=== PATIENT | male | born 1950 | race Caucasian/White ===

== ENCOUNTER 2021-09-25 07:55 | Emergency (ER) | payer MEDICARE, SELFPAY ==
--- NOTE | ~2021-09-25 | XR_ITS ---
XR abdomen/kub 1V 09/25/2021 08:21 INDICATION: Declining stool volume for 3 weeks TECHNIQUE: KUB COMPARISON: None FINDINGS: Bowel gas pattern is normal. Moderate colonic fecal loading. There is no evidence of free a ir, mass, organomegaly, ascites or obstruction. No abnormal calculi are seen. The bones appear inta ct. IMPRESSION: 1: No acute abdominal abnormality identified. Reviewed, dictated and finalized at location A.
[2021-09-25 08:01] VITALS: BP 173/89; PULSE 93; RESP 18; TEMP 36.4; O2SAT 99
--- NOTE | 2021-09-25 09:26 | ED.GENADULT ---
HPI - General Adult General Chief complaint: Unspecified Stated complaint: CONSTIPATION Time Seen by Provider: 09/25/21 08:07 History of Present Illness HPI narrative: Pt presents with not having BM for several days. Pt denies pain or other symptoms. Related Data Allergies Allergy/AdvReac Type Severity Reaction Status Date / Time No Known Allergies Allergy Verified 09/25/21 08:09 Review of Systems Review of Systems: All systems reviewed & are unremarkable except as noted in HPI and below Exam Const: General: cooperative, healthy appearing, comfortable and no acute distress Nutritional Appearance: average body habitus Orientation/consciousness: patient oriented x3 Limitations: no limitations Neck: Neck: normal visual inspection and full ROM Chest: Chest palpation & inspection: normal inspection of the chest Resp: Effort & Inspection: normal respiratory effort and able to speak in complete sentences Auscultation: clear to auscultation bilaterally Cardio: Rate: regular rate Rhythm: regular rhythm GI: Inspection: normal to inspection GI Palp: Yes abdominal tenderness (none) Percussion: Yes normal to percussion Auscultation: normal bowel sounds Back/Spine/Pelvis: Back: no CVA tenderness Skin: General skin exam: normal color and no rashes or lesions noted Neuro: General: patient oriented x3, moves all extremities and no focal motor deficits Extrem: General: normal to inspection, full ROM and no clubbing, cyanosis or edema Psych: Appearance: grossly normal Mental Status: mental status grossly normal Speech and movement: Normal speech and movement present Affect: normal affect Attitude: cooperative Course Vital Signs Vital signs: Vital Signs Temperature 97.6 F 09/25/21 08:01 Pulse Rate 93 09/25/21 08:01 Respiratory Rate 18 09/25/21 08:01 Blood Pressure 173/89 H 09/25/21 08:01 Pulse Oximetry 99 09/25/21 08:01 Oxygen Delivery Room Air 09/25/21 08:01 Temperature 97.6 F 09/25/21 08:01 Pulse Rate 87 09/25/21 09:40 Respiratory Rate 17 09/25/21 09:40 Blood Pressure 164/83 H 09/25/21 09:40 Pulse Oximetry 100 09/25/21 09:40 Oxygen Delivery Room Air 09/25/21 08:01 Medical Decision Making Vital Signs Vital Signs: Vital Signs Temperature 97.6 F 09/25/21 08:01 Pulse Rate 93 09/25/21 08:01 Respiratory Rate 18 09/25/21 08:01 Blood Pressure 173/89 H 09/25/21 08:01 Pulse Oximetry 99 09/25/21 08:01 Oxygen Delivery Room Air 09/25/21 08:01 Temperature 97.6 F 09/25/21 08:01 Pulse Rate 87 09/25/21 09:40 Respiratory Rate 17 09/25/21 09:40 Blood Pressure 164/83 H 09/25/21 09:40 Pulse Oximetry 100 09/25/21 09:40 Oxygen Delivery Room Air 09/25/21 08:01 Discharge Plan Discharge Clinical Impression: Constipation Patient Disposition: Home, Self-Care Condition: Stable Instructions: Antibiotic Form, Constipation (DC) Prescriptions: New magnesium citrate [Citroma] Solution 300 ml PO ONCE Qty: 296 0RF Rx Instructions: as a single dose Follow-up/Referrals: PHYSICIAN,BOAT JOINER [Primary Care Provider] -
[2021-09-25 09:40] VITALS: BP 164/83; PULSE 87; RESP 17; O2SAT 100
== END 2021-09-25 09:41 | disposition home or self-care (01) ==
PROVIDERS: Emergency Provider Emergency Medicine
DX: K59.00 Constipation, unspecified (principal)
CPT/HCPCS: 74018; 99283

== ENCOUNTER 2022-05-24 07:33 | Emergency (ER) | payer MEDICARE, SELFPAY ==
[2022-05-24 07:37] VITALS: BP 171/109; PULSE 107; RESP 20; TEMP 36.2; O2SAT 97
--- NOTE | 2022-05-24 07:56 | ECG_ITS ---
Measurements Intervals [place] Rate: 88 P: 67 CO: 192 QRS: -24 QRSD: 96 T: 48 QT: 370 QTc: 448 Interpretive Statements SINUS RHYTHM POSSIBLE LEFT ATRIAL ENLARGEMENT DELAYED PRECORDIAL R/S TRANSITION BASELINE ARTIFACT- I, III, AVL, V2 BORDERLINE ECG NO PREVIOUS ECG AVAILABLE FOR COMPARISON Electronically Signed On 05-24-2022 8:04:35 WARRANTY MANAGER by Brice Solis D.O.
[2022-05-24 07:58] VITALS: BP 187/91; PULSE 87; RESP 18; O2SAT 99
[2022-05-24 08:30] LABS: Anion Gap 3 mmol/L (8-16); Blood Urea Nitrogen 17 mg/dL (9-20); Calcium 8.8 mg/dL (8.4-10.2); Carbon Dioxide 30 mmol/L (22-30); Chloride 106 mmol/L (98-107); Estimated CRCL calculation 53 ml/min; Estimated Glomerular Filt Rate > 60; Glucose 102 mg/dL (65-110); Magnesium 2.2 mg/dL (1.6-2.3); Potassium 4.3 mmol/L (3.4-5.0); Sodium 139 mmol/L (137-145)
--- NOTE | 2022-05-24 08:36 | ED.GENADULT ---
HPI - General Adult General Chief complaint: Recheck/Abnormal Lab/Rx Stated complaint: High BP Time Seen by Provider: 05/24/22 07:41 History of Present Illness HPI narrative: Patient is a 71-year-old male who presents ER with elevated blood pressure. Reports he had an elevated blood pressure at his dentist office earlier this week. No chest pain or chest pressure or shortness of breath. No nausea or vomiting. Would like to make sure he is okay. Has no previous history of hypertension. But he also does not have a primary care doctor who he sees. Related Data Allergies Allergy/AdvReac Type Severity Reaction Status Date / Time No Known Allergies Allergy Verified 09/25/21 08:09 Review of Systems Review of Systems: All systems reviewed & are unremarkable except as noted in HPI and below Constitutional: Constitutional: Denies chills and Denies fever(s) Cardiovascular: Cardiovascular: Denies chest pain, Denies rapid heart rate and Denies radiating jaw, neck or arm pain Respiratory: Respiratory: Denies cough and Denies dyspnea Gastrointestinal: Gastrointestinal: Denies abdominal pain, Denies nausea and Denies vomiting Exam Narrative: GENERAL: Well-appearing, well-nourished, and in no acute distress. HEAD: Normocephalic, atraumatic. EYES: PERRL and EOMI. ENT: Mucous membranes moist. CHEST: Clear to auscultation. No respiratory distress. HEART: Regular rate and rhythm. Normal peripheral pulses. EXTREMITIES: Normal range of motion. No edema. SKIN: Warm, dry, no rash. NEURO: Alert and oriented x3. PSYCH: Normal mood and affect. Course Course Emergency Course: Improvement in blood pressure just resting. Will be started on Norvasc and given PCP follow-up. Patient also reports he was found when he takes his insurance and is planning to call to schedule an appointment. Vital Signs Vital signs: Vital Signs Temperature 97.2 F L 05/24/22 07:37 Pulse Rate 107 H 05/24/22 07:37 Respiratory Rate 20 05/24/22 07:37 Blood Pressure 171/109 H 05/24/22 07:37 Pulse Oximetry 97 05/24/22 07:37 Oxygen Delivery Room Air 05/24/22 07:37 Temperature 97.2 F L 05/24/22 07:37 Pulse Rate 87 05/24/22 07:58 Respiratory Rate 18 05/24/22 07:58 Blood Pressure 169/88 H 05/24/22 08:42 Pulse Oximetry 99 05/24/22 07:58 Oxygen Delivery Room Air 05/24/22 07:37 Medical Decision Making Vital Signs Vital Signs: Vital Signs Temperature 97.2 F L 05/24/22 07:37 Pulse Rate 107 H 05/24/22 07:37 Respiratory Rate 20 05/24/22 07:37 Blood Pressure 171/109 H 05/24/22 07:37 Pulse Oximetry 97 05/24/22 07:37 Oxygen Delivery Room Air 05/24/22 07:37 Temperature 97.2 F L 05/24/22 07:37 Pulse Rate 87 05/24/22 07:58 Respiratory Rate 18 05/24/22 07:58 Blood Pressure 169/88 H 05/24/22 08:42 Pulse Oximetry 99 05/24/22 07:58 Oxygen Delivery Room Air 05/24/22 07:37 Lab Data 05/24/22 08:14 Labs: Lab Results 05/24/22 Range/Units 08:14 Sodium 139 (137-145) mmol/L Potassium 4.3 (3.4-5.0) mmol/L Chloride 106 (98-107) mmol/L Carbon Dioxide 30 (22-30) mmol/L Anion Gap 3 L (8-16) mmol/L BUN 17 (9-20) mg/dL Creatinine 1.00 (0.7-1.3) mg/dL Estim Creat Clear Calc 53 ml/min Estimated GFR > 60 (59 - ) Glucose 102 (65-110) mg/dL Calcium 8.8 (8.4-10.2) mg/dL Magnesium 2.2 (1.6-2.3) mg/dL Discharge Plan Discharge Clinical Impression: Hypertension Patient Disposition: Home, Self-Care Condition: Stable Instructions: Hypertension (ED) Additional Instructions: Return the ER if you have chest pain or shortness of breath, you cannot keep down food or water, you lose consciousness, you have additional concerns. Establish care with a primary care physician so that he can have long-term management of your hypertension. Prescriptions: New amlodipine 5 mg tablet 5 mg PO DAILY Qty: 14 0RF No Action magnesium ci
[2022-05-24 08:42] VITALS: BP 169/88
== END 2022-05-24 08:57 | disposition home or self-care (01) ==
PROVIDERS: Emergency Provider Emergency Medicine
DX: I10 Essential (primary) hypertension (principal); R94.31 Abnormal electrocardiogram [ECG] [EKG]
CPT/HCPCS: 36415; 80048; 83735; 93005; 99283

== ENCOUNTER 2022-06-29 09:09 | Outpatient (CLI) | payer MEDICARE, SELFPAY ==
[2022-06-29 20:52] LABS: Alanine Aminotransferase 25 U/L (6-50); Albumin Level 4.4 g/dL (3.5-5.1); Alkaline Phosphatase 122 U/L (38-126); Anion Gap 6 mmol/L (8-16); Aspartate Amino Transferase 36 U/L (17-59); Bilirubin,Total 0.6 mg/dL (0.2-1.3); Blood Urea Nitrogen 13 mg/dL (9-20); Carbon Dioxide 30 mmol/L (22-30); Chloride 104 mmol/L (98-107); Estimated Glomerular Filt Rate > 60; Glucose 77 mg/dL (65-110); Potassium 4.5 mmol/L (3.4-5.0); Sodium 140 mmol/L (137-145)
[2022-06-29 21:14] LABS: Prostate Specific Antigen 5.6 ng/mL (< OR = 4.0)
[2022-06-30 13:37] LABS: Basophils Absolute Auto 0.1 K/mm3 (0.0-0.1); Basophils Percent Auto 1.3 % (0.2-1.2); Eosinophils Absolute Auto 0.1 K/mm3 (0-0.3); Eosinophils Percent Auto 0.8 % (0-4.4); Hematocrit 51.7 % (42.0-52.0); Hemoglobin 16.7 g/dL (14.0-18.0); Immature Granulocyte Absolute 0.03 K/mm3 (0.00-0.031); Immature Granulocyte Percent A 0.4 % (0-0.5); Lymphocytes Absolute Auto 2.19 K/mm3 (0.9-3.2); Lymphocytes Percent Auto 26.4 % (18.3-44.2); Mean Corpuscular HGB Conc 32.3 g/dl (32-36); Mean Corpuscular Hemoglobin 31.3 pg (26-34); Mean Corpuscular Volume 96.8 fl (80-100); Mean Platelet Volume 11.7 fl (7.4-10.4); Monocytes Absolute Auto 0.6 K/mm3 (0.1-0.6); Monocytes Percent Auto 6.6 % (2.6-8.5); Neutrophils Absolute Auto 5.4 K/mm3 (1.3-6.7); Neutrophils Percent Auto 64.5 % (45.5-73.1); Platelet Count Result 232 k/mm3 (150-375); Red Blood Count 5.34 M/mm3 (4.6-6.20); Red Cell Distribution Width 13.3 % (11.5-14.5); White Blood Count 8.3 K/mm3 (4.5-10.0)
[2022-06-30 13:40] LABS: Cholesterol 189 mg/dL (0-200); HDL Direct 29 mg/dL; Triglycerides 142 mg/dL (<150)
[2022-06-30 13:49] LABS: LDL Cholesterol Direct 134 mg/dL
== END 2022-06-29 09:10 | disposition home or self-care (01) ==
LOC: ANHGOSHLAB 09:10
PROVIDERS: PCP Internal Medicine; Visit Provider Nurse Practitioner
DX: I10 Essential (primary) hypertension (principal); Z12.5 Encounter for screening for malignant neoplasm of prostate; Z13.29 Encounter for screening for other suspected endocrine disorder; Z13.220 Encounter for screening for lipoid disorders
CPT/HCPCS: 36415; 80053; 80061; 84153; 85025; G0103

== ENCOUNTER → 2022-07-02 12:36 | Outpatient (CLI) | payer MEDICARE, SELFPAY ==
--- NOTE | ~2022-07-02 | US_ITS ---
EXAMINATION: US carotid duplex BI DATE: 07/02/2022 13:03 INDICATION: Right carotid bruit TECHNIQUE: Grayscale, color Doppler, and pulsed Doppler images of the cervical carotid arteries were obtained. The degree of vessel stenosis is placed in one of the following categories: normal, <50%, 5 0-69%, >=70% but less than near-occlusion, near-occlusion, or total occlusion. Note that percent sten osis relative to normal distal artery lumen diameter is indirectly measured from velocity measurement s as described by Leighton, et al. Radiology 2003; 229:340-346. COMPARISON: None. FINDINGS: RIGHT: The right common carotid artery (CCA) peak systolic velocity (PSV) is 98.4 cm/s. The right internal c arotid artery (ICA) PSV is 93.0 cm/s. The right ICA end-diastolic velocity (EDV) is 18.1 cm/s. [facility] ICA/CCA PSV ratio is 0.9. Grayscale and color Doppler images yield an estimate of 0% diameter red uction from plaque in the ICA. The external carotid artery (ECA) PSV is 120.3 cm/s. There is antegrad e flow in the right vertebral artery. LEFT: The left CCA PSV is 116.1 cm/s. The left ICA PSV is 100.3 cm/s. The left ICA EDV is 12.6 cm/s. [facility] ICA/CCA PSV ratio is 0.9. Grayscale and color Doppler images yield an estimate of 0% diameter redu ction from plaque in the ICA. The ECA PSV is 219.6 cm/s. There is antegrade flow in the left vertebra l artery. IMPRESSION: 1. No stenosis in the right internal carotid artery. 2. No stenosis in the left internal carotid artery. Reviewed, dictated and finalized at Location A. Reviewed, dictated and finalized at location L. TOLOGIC TECHNICIAN
== END ==
PROVIDERS: PCP Internal Medicine; Visit Provider Nurse Practitioner
DX: R09.89 Other specified symptoms and signs involving the circulatory and respiratory systems (principal)
CPT/HCPCS: 93880

== ENCOUNTER 2022-08-07 09:08 | Outpatient (CLI) | payer MEDICARE, SELFPAY ==
[2022-08-07 18:19] LABS: Basophils Absolute Auto 0.1 K/mm3 (0.0-0.1); Basophils Percent Auto 1.2 % (0.2-1.2); Eosinophils Absolute Auto 0.1 K/mm3 (0-0.3); Eosinophils Percent Auto 1.4 % (0-4.4); Hematocrit 52.9 % (42.0-52.0); Hemoglobin 17.1 g/dL (14.0-18.0); Immature Granulocyte Absolute 0.02 K/mm3 (0.00-0.031); Immature Granulocyte Percent A 0.2 % (0-0.5); Lymphocytes Absolute Auto 2.74 K/mm3 (0.9-3.2); Lymphocytes Percent Auto 31.6 % (18.3-44.2); Mean Corpuscular HGB Conc 32.3 g/dl (32-36); Mean Corpuscular Hemoglobin 31.2 pg (26-34); Mean Corpuscular Volume 96.5 fl (80-100); Monocytes Absolute Auto 0.7 K/mm3 (0.1-0.6); Monocytes Percent Auto 8.1 % (2.6-8.5); Neutrophils Percent Auto 57.5 % (45.5-73.1); Platelet Count Result 216 k/mm3 (150-375); Red Blood Count 5.48 M/mm3 (4.6-6.20); Red Cell Distribution Width 12.9 % (11.5-14.5); White Blood Count 8.7 K/mm3 (4.5-10.0)
[2022-08-07 18:52] LABS: Cholesterol 151 mg/dL (0-200); HDL Direct 31 mg/dL; Triglycerides 127 mg/dL (<150)
[2022-08-07 19:03] LABS: LDL Cholesterol Direct 95 mg/dL
[2022-08-07 19:22] LABS: Prostate Specific Antigen 5.6 ng/mL (< OR = 4.0)
== END 2022-08-07 09:09 | disposition home or self-care (01) ==
LOC: ANHGOSHLAB 09:09
PROVIDERS: PCP Internal Medicine; Visit Provider Nurse Practitioner
DX: I10 Essential (primary) hypertension (principal); R97.20 Elevated prostate specific antigen [PSA]; Z12.5 Encounter for screening for malignant neoplasm of prostate
CPT/HCPCS: 36415; 80061; 84153; 85025

== ENCOUNTER 2022-09-07 08:00 | Outpatient (NON) | payer MEDICARE, SELFPAY | END 2022-09-07 08:01 | disposition home or self-care (01) | LOC: ANHLAB 09-08 07:31 | PROVIDERS: PCP Internal Medicine; Visit Provider Internal Medicine Gastroenterology | DX: Z12.11 Encounter for screening for malignant neoplasm of colon (principal); D12.3 Benign neoplasm of transverse colon | CPT/HCPCS: 88305 ==

== ENCOUNTER 2022-09-07 10:52 | Day surgery (SDC) | payer MEDICARE, SELFPAY ==
[2022-07-06 15:38] VITALS: BMI 21.2
[2022-08-19 14:08] VITALS: BMI 21.3
--- NOTE | 2022-09-07 09:09 | WPDANESEPPF ---
Anes - Initial Pre Proc Eval Procedure: Operation Date: 09/07/22 13:00 Proposed Procedures p Screening Colonoscopy - Roberto Concepcion MD Date/Time: 09/07/22 09:09 Surgeon: Roberto Concepcion MD Pre Op Diagnosis: Neoplasm Screening Patient Data Age: 71 Gender: M Height: 1.75 m Weight: 65.5 kg Allergies Allergy/AdvReac Type Severity Reaction Status Date / Time No Known Allergies Allergy Verified 09/07/22 11:52 Home Medications Medication Instructions Recorded Confirmed Type atorvastatin 10 mg tablet 10 mg PO QHS #90 tabs 07/01/22 09/07/22 Rx sodium,potassium,mag sulfates 17.5 See Rx Instructions PO .COMPLEX 07/03/22 08/04/22 Rx gram-3.13 gram-1.6 gram oral soln #354 mL (Suprep Bowel Prep Kit) Patient hx anesthesia problems: none Family hx anesthesia problems: none Results Review: All pre-operative results and documents have been reviewed as part of the pre-operative evaluation. [facility] Past Medical History Medical History (Updated 09/07/22 @ 09:10 by Iglesia Flanagan DO) Hyperlipidemia Social History Social History (Updated 09/07/22 @ 12:22 by Iglesia Flanagan DO) Smoking packs per day: 0.5 Smoking cigarettes per day: 10.0 Years smoked: 55 Smoking pack-years: 27.50 Smoking status: Current every day smoker Tobacco type: cigarettes Alcohol intake: current Substance use type: does not use Lack of Transportation: No Lack of Food: Never True Current Housing: I Have Housing Concerned About Future Housing: No Difficulty Paying Gas/Electric Bills: No Difficulty Paying for Meds: No Currently Unemployed: No Education: Master's Degree or Higher Difficulty w/ Childcare or Family Care: No Living arrangements: alone Spiritual care concerns: No Anes - Eval Final PreProcedure Day of Procedure 09/07/22 09:09 Patient weight: normal Heart: regular rate and rhythm Lungs: clear to auscultation and normal air movement Airway: Mallampati scale class II Neurological: alert and oriented Last oral intake: >/= 8 hours ASA classification: III Emergent: no Anesthetic plan: proceed Anesthesia type and monitoring: general GIVS and standard monitoring Results Review: All pre-operative results and documents have been reviewed as part of the pre-operative evaluation. Informed Consent: The patient's anesthetic plan and its attendant risks and benefits were discussed with the patient/family/POA. Questions were solicited and answers provided to the satisfaction of the patient/family/POA.
[2022-09-07 11:57] VITALS: BMI 20.7
[2022-09-07 11:59] VITALS: BP 138/101; PULSE 106; RESP 18; TEMP 36.3; O2SAT 99
[2022-09-07] MEDS: LACTATED RINGERS 1,000 ML 150 ML IV CONT (12:20)
--- NOTE | 2022-09-07 12:24 | PM.HPGS ---
History of Present Illness History of Present Illness Consent: Risks, benefits, and alternatives have been discussed and questions answered. Patient agrees to proceed with procedure. Chief complaint: Neoplasm Screening Narrative: Leo Ramirez is a 71 year old male Presents for screening colonoscopy. Patient's current weight appetite and bowel movements look normal. Patient denies abdominal pain. He has had no bleeding. Family history noncontributory. Patient presents today for screening colonoscopy. Review of Systems Review of Systems: Review of systems noncontributory. [facility] Past Medical History Medical History (Updated 09/07/22 @ 12:26 by Roberto Concepcion MD) Hyperlipidemia Social History Social History (Updated 09/07/22 @ 12:22 by Iglesia Flanagan DO) Smoking packs per day: 0.5 Smoking cigarettes per day: 10.0 Years smoked: 55 Smoking pack-years: 27.50 Smoking status: Current every day smoker Tobacco type: cigarettes Alcohol intake: current Substance use type: does not use Lack of Transportation: No Lack of Food: Never True Current Housing: I Have Housing Concerned About Future Housing: No Difficulty Paying Gas/Electric Bills: No Difficulty Paying for Meds: No Currently Unemployed: No Education: Master's Degree or Higher Difficulty w/ Childcare or Family Care: No Living arrangements: alone Spiritual care concerns: No Meds Home Medications and Allergies Home Medications Medication Instructions Recorded Confirmed Type atorvastatin 10 mg tablet 10 mg PO QHS #90 tabs 07/01/22 09/07/22 Rx sodium,potassium,mag sulfates 17.5 See Rx Instructions PO .COMPLEX 07/03/22 08/04/22 Rx gram-3.13 gram-1.6 gram oral soln #354 mL (Suprep Bowel Prep Kit) Allergies Allergy/AdvReac Type Severity Reaction Status Date / Time No Known Allergies Allergy Verified 09/07/22 11:52 Vital Signs Vital Signs - 24 hr 09/07/22 11:59 Temperature 97.3 F L Pulse Rate 106 H Respiratory Rate 18 Blood Pressure 138/101 H Pulse Oximetry 99 Oxygen Delivery Room Air Exam Narrative: Physical exam reveals patient to be alert. Vital signs stable. HEENT exam is unremarkable. Patient is anicteric. Lungs are clear to auscultation and percussion. Heart is without murmur or extra sounds. Abdomen bowel sounds are present soft nontender with no organomegaly. Digital external rectal exam normal. Assessment and Plan Assessment and plan (1) Encounter for screening colonoscopy: Code(s): Z12.11 - Encounter for screening for malignant neoplasm of colon Status: Acute Assessment and Plan: Patient presents today for screening colonoscopy. He appears to be at average risk for colon polyps. Further recommendations may be given after endoscopy.
[2022-09-07 12:57] VITALS: BP 108/62; PULSE 74; RESP 16; O2SAT 97
--- NOTE | 2022-09-07 13:05 | WPDANESPN ---
Anes - Prog Note Post-Op Date/Time: 09/07/22 13:05 Vital Signs: Last Vital Signs Temp 36.3 C L 09/07/22 11:59 Pulse 106 H 09/07/22 11:59 Resp 18 09/07/22 11:59 BP 138/101 H 09/07/22 11:59 Pulse Ox 99 09/07/22 11:59 O2 Del Method Room Air 09/07/22 11:59 Pain Score (VAS): 0 I/O: Intake & Output 09/06/22 09/07/22 09/07/22 23:59 07:59 15:59 Intake Total 300 Balance 300 Patient Feedback: Patient satisfied with anesthetic care.
[2022-09-07 13:07] VITALS: BP 113/76; PULSE 86; RESP 16; O2SAT 98
[2022-09-07 13:17] VITALS: BP 105/84; PULSE 84; RESP 20; O2SAT 100
== END 2022-09-07 13:43 | disposition home or self-care (01) ==
PROVIDERS: PCP Internal Medicine; Visit Provider Internal Medicine Gastroenterology
PROC: 0DJD8ZZ Inspection of Lower Intestinal Tract, Via Natural or Artificial Opening Endoscopic (ICD-10-PCS; CPT 45378; principal; 2022-09-07 13:00)
DX: Z12.11 Encounter for screening for malignant neoplasm of colon (principal)
CPT/HCPCS: 45385

== ENCOUNTER 2022-10-01 14:30 | Outpatient (CLI) | payer MEDICARE, SELFPAY ==
--- NOTE | 2022-10-01 14:57 | ECHO_ITS ---
Patient Info Name: Leo Ramirez Age: 71 years : 1950 Gender: Male Ht: 69 in Wt: 144 lbs BSA: 1.78 m2 HR: 78 bpm BP: 147 / 77 mmHg Technical Quality: Good Exam Date: 10/01/2022 3:20 PM Exam Location: [facility] Patient Status: Outpatient Admit Date: 10/01/2022 Staff Ordering Physician: Shanthi Newton NP Front Desk Person: Karli Long RDCS Attending Provider: Shanthi Newton NP Referring Physician: Aman SPENCE; Exam Type: CA echo doppler color flow Study Info Indications R01.1 - Cardiac murmur, unspecified Complete two-dimensional, color flow and Doppler transthoracic echocardiogram is performed. Summary 1. Complete two-dimensional, color flow and Doppler transthoracic echocardiogram is performed. 2. Left ventricular chamber dimension is normal. 3. Left ventricular systolic function is normal, estimated at 60-65%. 4. The left ventricular diastolic function is grade I diastolic dysfunction. 5. E/e' 7 is not elevated. 6. There is mild aortic valve regurgitation. 7. There is trace tricuspid valve regurgitation. 8. No pulmonary hypertension, estimated pulmonary arterial systolic pressure is 30 mmHg. Left Ventricle E/e' 7 is not elevated. Left ventricular chamber dimension is normal. Left ventricular systolic function is normal, estimated at 60-65%. The left ventricular diastolic function is grade I diastolic dysfunction. Right Ventricle Right ventricular chamber dimension is normal. Right ventricular systolic function is normal. Left Atria Left atrial chamber dimension is normal. Right Atria Right atrial chamber dimension is normal. Aortic Valve The aortic valve is trileaflet. There is no aortic valve stenosis. There is mild aortic valve regurgitation. Pulmonic Valve There is no pulmonic regurgitation. Mitral Valve There is no mitral valve stenosis. There is no mitral valve regurgitation. Tricuspid Valve There is trace tricuspid valve regurgitation. No pulmonary hypertension, estimated pulmonary arterial systolic pressure is 30 mmHg. Pericardium/Pleural There is no pericardial effusion. Inferior Vena Cava Normal inferior vena cava with >50% collapse upon inspiration consistent with normal right atrial pressure, 5 mmHg. Aorta The aortic root size at the sinus of Valsalva is normal. Left Ventricular Outflow Tract Name Value Normal LVOT 2D LVOT Diameter 2.0 cm LVOT Doppler LVOT Peak Gradient 4 mmHg LVOT Mean Gradient 2 mmHg LVOT VTI 17 cm LVOT VTI/AV VTI Ratio 0.9 LVOT Stroke Volume 55 ml LVOT CO 11.1 l/min LVOT CI 6.2 l/min/m2 Pulmonic Valve Name Value Normal RVOT Doppler RVOT Peak Gradient 1 mmHg PV Doppler
== END 2022-10-01 14:31 | disposition home or self-care (01) ==
PROVIDERS: PCP Internal Medicine; Visit Provider Nurse Practitioner
DX: R01.1 Cardiac murmur, unspecified (principal)
CPT/HCPCS: 93306

== ENCOUNTER → 2022-10-16 10:34 | Outpatient (CLI) | payer MEDICARE, SELFPAY ==
--- NOTE | ~2022-10-16 | CT_ITS ---
EXAMINATION: CT lung screening DATE: 10/16/2022 10:51 INDICATION: History of tobacco dependence TECHNIQUE: Computed tomography (CT) of the chest was performed without intravenous contrast. The dose -length product was 98.57 mGy-cm. Automated exposure control and iterative reconstruction technique w ere employed. COMPARISON: None FINDINGS: No significant pleural or pericardial effusion. There is atherosclerosis of the aorta. Hear t size normal. Upper abdomen is unremarkable. There is emphysema. No endobronchial lesions. There is a 3 mm right lower lobe nodule, image 53. No endobronchial lesions. No focal airspace consolidation. No pneumothorax. Mild thoracic spondylosis. IMPRESSION: 1. . Lung-RADS category 2: Benign appearance or behavior. Continue annual screening with noncontrast low-dose chest CT in 12 months. Reviewed, dictated and finalized at location [] IMPRESSION: 1. . Lung-RADS category 2: Benign appearance or behavior. Continue annual scree tarun with noncontrast low-dose chest CT in 12 months.
== END ==
PROVIDERS: PCP Nurse Practitioner; Visit Provider Nurse Practitioner
DX: Z12.2 Encounter for screening for malignant neoplasm of respiratory organs (principal); F17.210 Nicotine dependence, cigarettes, uncomplicated
CPT/HCPCS: 71271

== ENCOUNTER 2022-11-10 08:48 | Outpatient (CLI) | payer MEDICARE, SELFPAY ==
--- NOTE | ~2022-11-10 | US_ITS ---
EXAMINATION: US art doppler w press UE BI DATE: 11/10/2022 09:33 INDICATION: Peripheral vascular disease, unspecified. TECHNIQUE: Segmental pressures and plethysmographic and Doppler waveforms of the upper extremity geovanny deirdre were obtained. COMPARISON: None. FINDINGS: Right and left brachial artery pressures of 156 mm Hg and 147 mm Hg, respectively, are concordant (no rmal difference <= 30 mmHg). The right finger:brachial systolic pressure ratio is 0.52 (normal > 0.8) . Arterial Doppler waveforms demonstrate normal upstroke (normal upstroke < 0.2 s). The left finger:brachial systolic pressure ratio is 1.03. Segmental pressure gradients 0.81. Arterial Doppler waveforms demonstrate normal upstroke. IMPRESSION: 1. Decreased right finger:brachial systolic pressure ratio, consistent with right-sided arterial occl usive disease. Reviewed, dictated and finalized at location A. IMPRESSION: 1. Decreased right finger:brachial systolic pressure ratio, consistent with rig ht-sided arterial occlusive disease.
== END 2022-11-10 08:49 | disposition home or self-care (01) ==
PROVIDERS: PCP Nurse Practitioner; Visit Provider Nurse Practitioner
DX: I73.9 Peripheral vascular disease, unspecified (principal)
CPT/HCPCS: 93923

== ENCOUNTER 2024-02-11 08:50 | Outpatient (CLI) | payer MEDICARE, SELFPAY ==
[2024-02-11 18:01] LABS: Basophils Absolute Auto 0.1 K/mm3 (0.0-0.1); Basophils Percent Auto 1.8 % (0.2-1.2); Eosinophils Absolute Auto 0.2 K/mm3 (0-0.3); Eosinophils Percent Auto 2.2 % (0-4.4); Hematocrit 50.2 % (42.0-52.0); Hemoglobin 16.3 g/dL (14.0-18.0); Immature Granulocyte Absolute 0.02 K/mm3 (0.00-0.031); Immature Granulocyte Percent A 0.3 % (0-0.5); Lymphocytes Absolute Auto 2.07 K/mm3 (0.9-3.2); Lymphocytes Percent Auto 30.8 % (18.3-44.2); Mean Corpuscular HGB Conc 32.5 g/dl (32-36); Mean Corpuscular Hemoglobin 31.6 pg (26-34); Mean Corpuscular Volume 97.3 fl (80-100); Mean Platelet Volume 11.7 fl (7.4-10.4); Monocytes Absolute Auto 0.5 K/mm3 (0.1-0.6); Monocytes Percent Auto 6.8 % (2.6-8.5); Neutrophils Absolute Auto 3.9 K/mm3 (1.3-6.7); Neutrophils Percent Auto 58.1 % (45.5-73.1); Platelet Count Result 211 k/mm3 (150-375); Red Blood Count 5.16 M/mm3 (4.6-6.20); Red Cell Distribution Width 12.9 % (11.5-14.5); White Blood Count 6.7 K/mm3 (4.5-10.0)
[2024-02-11 18:17] LABS: Alanine Aminotransferase 27 U/L (6-50); Albumin Level 4.6 g/dL (3.5-5.1); Alkaline Phosphatase 98 U/L (38-126); Anion Gap 7 mmol/L (4-12); Aspartate Amino Transferase 41 U/L (17-59); Bilirubin,Total 0.6 mg/dL (0.2-1.3); Blood Urea Nitrogen 15 mg/dL (9-20); Calcium 9.5 mg/dL (8.4-10.2); Carbon Dioxide 31 mmol/L (22-30); Chloride 102 mmol/L (98-107); Cholesterol 171 mg/dL (0-200); Estimated Glomerular Filt Rate > 60; Glucose 96 mg/dL (65-110); HDL Direct 42 mg/dL; Potassium 4.8 mmol/L (3.4-5.0); Sodium 140 mmol/L (137-145); Triglycerides 73 mg/dL (<150)
[2024-02-11 18:56] LABS: LDL Cholesterol Direct 104 mg/dL
[2024-02-11 19:15] LABS: Prostate Specific Antigen 6.5 ng/mL (< OR = 4.0)
== END 2024-02-11 08:51 | disposition home or self-care (01) ==
LOC: ANHGOSHLAB 08:51
PROVIDERS: PCP Nurse Practitioner; Visit Provider Nurse Practitioner
DX: E78.5 Hyperlipidemia, unspecified (principal); Z12.5 Encounter for screening for malignant neoplasm of prostate; Z13.29 Encounter for screening for other suspected endocrine disorder
CPT/HCPCS: 36415; 80053; 80061; 84153; 85025; G0103

== ENCOUNTER 2024-12-24 06:54 | Emergency (ER) | payer MEDICARE, SELFPAY ==
[2024-12-24] VITALS (7 sets, daily range): BP systolic 132–174; BP diastolic 65–79; PULSE 61–90; RESP 13–18; TEMP 36.4–36.5; O2SAT 97–100
--- NOTE | ~2024-12-24 | US_ITS ---
EXAMINATION: US arterial duplex LE RT DATE: 12/24/2024 08:40 INDICATION: Concern for right femoral artery pseudoaneurysm post recent angioplasty TECHNIQUE: Multiple grayscale and Doppler ultrasound images of the right groin were obtained. COMPARISON: None FINDINGS: Right common femoral, superficial femoral and profunda femoral arteries are normal with normal triphasic waveforms on color Doppler. The right hypogastric artery and vein can be seen arising and extending cephalad from the right common femoral artery and vein respectively. 4.5 x 4 x 1 cm fusiform hypoechoic likely hematoma superficial to the right common femoral artery and vein without evident internal vascular flow on color Doppler likely representing a small hematoma. No pseudoaneurysm. IMPRESSION: 1. Likely small hematoma at the right groin with no pseudoaneurysm. Reviewed, dictated and finalized at location A.
--- OUTSIDE RECORDS SUMMARY | 2024-12-24 06:57 | XMS_ITS | Encounter Summary ---
Author Organization [employer] Address 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
--- OUTSIDE RECORDS SUMMARY | 2024-12-24 06:57 | XMS_ITS | Clinical Summary ---
Author Organization [email or web address] [facility] Address [address] [place] [address] Care Team Providers Care Frame Trimmer Name Role Phone Rojelio Correia MD Primary Care Provider [phone] Source Comments [facility],non-owned Affiliates and Associated Physician Practices is amultiple site organization consisting of ambulatory clinics and hospital sitesin [place], [place], [place] and [place]. This disclosure is being madepursuant to the Care Everywhere program and may not contain all information available regarding this patient. Last updated 18.[employer] Allergies No known active allergies Medications * Be aware that medications may not be up to date on this document. Alwaysverify current medications with the patient. No known medications Social History Tobacco Use Types Packs/Day Years Used Date Smoking Tobacco: Every Day Smokeless Tobacco: Never Sex and Gender Information Value Date Recorded Sex Assigned at Not on file Legal Sex Male 12:53 PM CDT Gender Identity Not on file Sexual Orientation Not on file Last Filed Vital Signs Vital Sign Reading Time Taken Comments Blood Pressure 142/90 07/23/2017 2:12 PM CDT Pulse 88 07/23/2017 2:12 PM CDT Temperature 36.5 C (97.7 F) 07/23/2017 2:12 PM CDT Respiratory Rate 18 07/23/2017 2:12 PM CDT Oxygen Saturation 95% 07/23/2017 2:12 PM CDT Inhaled Oxygen Concentration - - Weight 70.3 kg (155 lb) 07/23/2017 2:12 PM CDT Height 175.3 cm (5' 9) 07/23/2017 2:12 PM CDT Body Mass Index 22.89 07/23/2017 2:12 PM CDT Plan of Treatment Health Maintenance Due Date Last Done Comments COLOGUARD (AGES 45-75) - COL ON CA SCREENING 1950 COLON MONITORING 1950 COLONOSCOPY - COLON CA SCREENING 1950 CT COLONOGRAPHY - COLON CA SCREENING 1950 Colorectal Cancer Screening 1950 FIT - COLON CA SCREENING 1950 FLEX SIG - COLON CA SCREENING 1950 LIPID TESTING 1950 HEPATITIS C SCREENING 12/14/1967 DTAP/TDAP/TD VACCINES (1 - Tdap) 1968 PNEUMOCOCCAL VACCINE 50+ (1 of 2 - PCV) 1968 ZOSTER VACCINE (1 of 2) 12/19/1999 COVID-19 VACCINE (1 - 2023-2 5 season) 2023 DEPRESSION SCREENING 04/26/2024 MEDICARE AWV CALENDAR YEAR 2024 Respiratory Syncytial Virus (RSV) Vaccine Pt: or over 60 yrs (1 - 1-dose 75+ series) 2024 INFLUENZA VACCINE (#1) 2024 HEPATITIS B VACCINE Aged Out No longe r eligible based on patient's age to complete this topic HIB VACCINE Aged Out No longer eligi ble based on patient's age to complete this topic HPV VACCINE Aged Out No longer eligi ble based on patient's age to complete this topic MENINGOCOCCAL (Group B) VACC INE SHARED DECISION-MAKING Aged Out No longer eligibl e based on patient's age to complete this topic MENINGOCOCCAL GROUPS A/C/Y/W VACCINE Aged Out No longer eligible b ased on patient's age to complete this topic Insurance [facility] MANAGED MEDICARE ADV [facility] MANAGED MEDICARE ADV Care Teams Frame Trimmer Relationship Specialty Start Date End Date Rojelio Correia MD PCP - General Internal Medicine 07/23/17
--- OUTSIDE RECORDS SUMMARY | 2024-12-24 06:57 | XMS_ITS | Clinical Summary ---
Author Organization [facility] Address [address] [place] [address] Care Team Providers Care Sas Bi Developer Name Role Phone Pritesh Quispe DO Primary Care Provider [phone] Allergies No known active allergies Medications atorvastatin (LIPITOR) 10 mg tablet Take 1 tablet (10 mg total) by mouth nightly at bedtime 09/26/2022 Active aspirin 81 mg chewable tablet Take 1 tablet (81 mg total) by mouth daily Active lisinopriL (PRINIVIL,ZESTR IL) 5 mg tablet Take 1 tablet (5 mg total) by mouth daily Active clopidogreL (PLAVIX) 75 mg tablet Take 1 tablet (75 mg total) by mouth daily 30 tablet 11 04/13/2024 Active Active Problems Problem Noted Date Diagnosed Date Atherosclerotic PVD with intermittent claudicati on 12/11/2024 Stenosis of peripheral vascular stent 11/15/2024 Primary hypertension 05/15/2024 Assessment & Plan (11/29/2024 2:05 PM CDT): Stable continue lisinopril Assessment & Plan (05/15/2024 3:29 PM CONTROL ANALYST): Stable continue lisinopril Atherosclerotic peripheral v ascular disease with intermittent claudication 03/20/2024 Embolism and thrombosis of other arteries 2023 PVD (peripheral vascular disease) 12/02/2022 Assessment & Plan (11/29/2024 2:05 PM CDT): Prior left lower extremity revascularization with iliac and SFA stents, unfortunately continues to smoke, has elevated velocities with a drop in KYLAH consistent with InStent stenosis of the left SFA. Findings discussed with the patient, we discussed the importance of tobacco cessation. Risks benefits alternatives to lower extremity angiogram possible intervention discussed. He wished proceed. We will restart ASA and Plavix following his prostate biopsy. Assessment & Plan (11/16/2024 9:14 AM CDT): Patient is showing in stent restenosis the left SFA with an elevated velocity 551 cm/sec. Patient will need to be scheduled for an angiogram with potential intervention. Discussed procedure with the patient along with its potential risks. Answered all questions to his satisfaction. He is agreeable wishes to proceed. Assessment & Plan (05/15/2024 3:29 PM CONTROL ANALYST): Status post stenting of what appeared to be a left iliac artery aneurysms with stenosis as well as left SFA stent. His life-limiting claudication has completely resolved. Continue ASA Plavix and statin therapy. Aortoiliac duplex and noninvasive testing ordered for baseline. Assessment & Plan (11/11/2023 12:15 PM CDT): Development now to life-limiting claudication of left lower extremity, risks benefits alternatives lower extremity angiogram possible intervention discussed, risks including bleeding, infection, perforation, contrast induced nephropathy, dissection, thrombosis, distal embolization and need further surgery he wished proceed. I strongly encouraged him to quit smoking. Continue ASA and statin therapy. Assessment & Plan (08/20/2023 2:31 PM CDT): Stable claudication, continue risk factor modification with ASA statin therapy. Follow up in 6 months with repeat noninvasives. Assessment & Plan (12/02/2022 8:05 AM CDT): Clinically no signs of upper extremity occlusive disease with palpable pulses and no symptoms. No further workup needed. Left lower extremity claudication. Recommend risk factor modification with ASA statin therapy. Strongly recommend smoking cessation. Bilateral lower extremity arterial Doppler ordered. Tobacco abuse 12/02/2022 Assessment & Plan (12/02/2022 9:27 AM CDT): Strongly recommended smoking cessation. Mixed hyperlipidemia 12/02/2022 Assessment & Plan (11/29/2024 2:05 PM CDT): Stable continue Lipitor Assessment & Plan (05/15/2024 3:29 PM CONTROL ANALYST): Stable continue Lipitor Assessment & Plan (11/11/2023 12:15 PM CDT): Stable continue statin therapy. Assessment & Plan (08/20/2023 2:31 PM CDT): Stable continue Lipitor 10 mg. Assessment & Plan (12/02/2022 8:05 AM CDT): Stable continue Lipitor 10 mg. Encounters Date Type Department Care Team Description 12/22/2024 11:00 AM CDT - 12/22/2024 12:00 PM CDT Surgery [facility] Cardiac Process Safety Engineer [address] [place] [id number] Jacek King MD ANGIOGRAPHY - BILATERAL EXTREMITY S&I [id number] 12/22/2024 9:04 AM CDT - 12/22/2024 6:30 PM CDT Hospital Encounter [facility] Cardiac Process Safety Engineer [address] [place] [id number] Jacek King MD Atherosclerotic PVD with intermittent claudication; Other disorder of circulatory system Discharge Disposition: Discharge to home or self care 12/11/2024 Documentation [facility] Vascular and Vein Surgery [address] [place] [address] [place] [phone] Flower Storey, LAZARUS 12/01/2024 Telephone [facility] Vascular and Vein Surgery [address] [place] [address] [place] [phone] Madeline Barroso MA 11/29/2024 8:45 AM CDT Office Visit [facility] Vascular at [address] [phone] Jacek King MD PVD (peripheral vascular disease) (Primary Dx); Mixed hyperlipidemia; Primary hypertension 11/29/2024 Telephone [facility] Vascular and Vein Surgery [address] [place] [phone] Flower Storey, RN 11/15/2024 9:45 AM CDT Office Visit [facility] Vascular at [address] [phone] Tiff Lopez NP Primary hypertension (Primary Dx); PVD (peripheral vascular disease) 11/15/2024 Documentation [facility] Vascular and Vein Surgery [address] [place] [phone] Flower Storey, LAZARUS 11/07/2024 9:00 AM CDT Ancillary Procedure [facility] Vascular and Vein Surgery at [address] [phone] Aftercare following surgery of the circulatory system 11/07/2024 9:00 AM CDT Ancillary Procedure [facility] Vascular and Vein Surgery at [address] [phone] Aftercare following surgery of the circulatory system 11/07/2024 8:00 AM CDT Ancillary Procedure [facility] Vascular and Vein Surgery at [address] [phone] Aftercare following surgery of the circulatory system from Last 3 Months Immunizations Immunization Administration Dates Next Due Influenza, Quadrivalent, Fanny l Culture-based MDCK, Preservative Free, Antibiotic Free, Intramuscular 04/23/2022 Surgical History Surgery Date Site/Laterality Comments COLONOSCOPY 04/26/2020 - 04/25/2021 N/A PROSTATE BIOPSY 04/26/2022 - 04/25/2023 N/A Medical History Medical History Date Comments Hyperlipidemia Hypertension Social History Tobacco Use Types Packs/Day Years Used Date Smoking Tobacco: Every Day Cigarettes 0.5 50 Tobacco Cessation:Ready to Q uit: Not Asked; Counseling Given: Not Answered Alcohol Use Standard Drinks/Week Comments Yes 0 (1 standard drink = 0.6 oz pur e alcohol) AUDIT-C Answer Date Recorded Q1: How often do you have a drink containing alc ohol? Monthly or less 12/22/2024 Q2: How many drinks containi ng alcohol do you have on a typical day when you are drinking? 1 or 2 12/22/2024 Q3: How often do you have si x or more drinks on one occasion? Never 12/22/2024 Personal Safety Answer Date Recorded Have you ever been in or are you currently in a harmful physical or emotional relationship or is someone making you feel afraid or unsafe? Denies 12/22/2024 Sex and Gender Information Value Date Recorded Sex Assigned at Not on file Legal Sex Male 11:27 PM CONTROL ANALYST Gender Identity Not on file Sexual Orientation Not on file Obstetrics History Last Filed Vital Signs Vital Sign Reading Time Taken Comments Blood Pressure 139/64 12/22/2024 6:05 PM CDT Pulse 70 12/22/2024 6:05 PM CDT Temperature 36.5 C (97.7 F) 04/13/2024 1:00 PM CONTROL ANALYST Respiratory Rate 18 12/22/2024 6:05 PM CDT Oxygen Saturation 100% 12/22/2024 6:05 PM CDT Inhaled Oxygen Concentration - - Weight 62.5 kg (137 lb 12.6 oz) 12/22/2024 9:25 AM CDT Height 175.3 cm (5' 9) 11/29/2024 8:55 AM CDT Body Mass Index 20.35 11/29/2024 8:55 AM CDT Plan of Treatment Health Maintenance Due Date Last Done Comments Colon Cancer Screening-Colonoscopy 1950 Depression Screening 1950 Hepatitis C Screening 1950 DTaP/Tdap/Td Vaccine (1 - Tdap) 1960 Hepatitis B Screening 12/19/1967 Pneumococcal vaccine 65+ (1 of 2 - PCV) 1968 Lung Cancer Screening 12/19/1999 Zoster Vaccine (1 of 2) 12/19/1999 Abdominal Aortic Aneurysm (A AA) Screen 2014 Well Visit 65+ 2014 Covid-19 Vaccine (5 - 2023-2 5 season) 2023 04/23/2022, 02/08/2021, 07/20/2020, Additional history exists Influenza Vaccine (#1) 2024 04/23/2022 Fall Risk Assessment 04/13/2025 04/13/2024 Medical Devices Implanted Type Area Manager Presentation Device Identifier Shelf Expiration Date Model / Serial / Lot [employer] Stent Peripheral Over The Wire Zilver Ptx [id number] Nitinol [id number] - [id number] Implanted:Qty: 1 on 04/13/2024 by Jacek King MD at [facility] [employer] [id number] 08/17/2025 [id number] / / [id number] [employer] System Closure Repair Femoral Artery Suture Mediated Perclose Prostyle 25486-96 - [id number] Implanted:Qty: 1 on 04/13/2024 by Jacek King MD at [facility] [employer] 01/23/2026 [id number] / / [id number] [employer] System Closure Repair Femoral Artery Suture Mediated Perclose Prostyle 24272-84 - [id number] Implanted:Qty: 1 on 04/13/2024 by Jacek King MD at [facility] [employer] 01/23/2026 [id number] / / [id number] [employer] Stent Graft Endoprosthesis Reduced Profile Straight Heparin Coated Viabahn [id number] - [id number] - [id number] Implanted:Qty: 1 on 04/13/2024 by Jacek King MD at [facility] [employer] [id number] 06/25/2026 [id number] / [id number] / [employer] System Closure Repair Femoral Artery Suture Mediated Perclose Prostyle 40835-81 - [id number] Implanted:Qty: 1 on 12/22/2024 by Jacek King MD at [facility] [employer] 10/23/2026 [id number] / / [id number] Procedures Procedure Name Priority Date/Time Associated Diagnosis Comments REVENDVAS FEMPOP UN WPTA 52157 Routine 12/22/2024 1:18 PM CDT Atherosclerotic PVD with intermittent claudication REVAS ENDOSVAS ILIAC WPTA 20471 Routine 12/22/2024 1:18 PM CDT Atherosclerotic PVD with intermittent claudication AORTOGRAM ABDOMINAL S&I Routine 12/22/2024 1:18 PM CDT Atherosclerotic PVD with intermittent claudication PERIPHERAL RUN OFF CATH Routine 12/22/2024 1:18 PM CDT Atherosclerotic PVD with intermittent claudication EGFR STAT 12/22/2024 9:35 AM CDT Atherosclerotic PVD with intermittent claudication DIFFERENTIAL AUTO STAT 12/22/2024 9:3 5 AM CDT Atherosclerotic PVD with intermittent claudication ANTIBODY SCREEN STAT 12/22/2024 9:35 AM CDT Atherosclerotic PVD with intermittent claudication ABO/RH STAT 12/22/2024 9:35 AM CDT Atherosclerotic PVD with intermittent claudication TYPE AND SCREEN STAT 12/22/2024 9:35 AM CDT Atherosclerotic PVD with intermittent claudication PROTIME-INR STAT 12/22/2024 9:35 AM CDT Atherosclerotic PVD with intermittent claudication CBC WITH AUTO DIFFERENTIAL STAT 12/22/2024 9:35 AM CDT Atherosclerotic PVD with intermittent claudication BASIC METABOLIC PANEL STAT 12/22/2024 9:35 AM CDT Atherosclerotic PVD with intermittent claudication APTT STAT 12/22/2024 9:35 AM CDT Atherosclerotic PVD with intermittent claudication Other disorder of circulatory system US ARTERIAL DUPLEX LOWER EXTREMITY LEFT LIMITED Schedule Routine, Read Routine (OP Routine) 11/07/2024 10:30 AM CDT Aftercare following surgery of the circulatory system US DUPLEX SCAN AORTA, IVC ILIAC COMPLETE Schedule Routine, Read Routine (OP Routine) 11/07/2024 10:30 AM CDT Aftercare following surgery of the circulatory system US KYLAH Schedule Routine, Read Routine (OP Routine) 11/07/2024 10:30 AM CDT Aftercare following surgery of the circulatory system from Last 3 Months Results * PERIPHERAL RUN OFF CATH, AORTOGRAM ABDOMINAL S&I, REVAS ENDOSVAS ILIAC WPTA 66595, REVENDVAS FEMPOP UN WPTA 22031 (12/22/2024 1:18 PM CDT) Anatomical Region Laterality Modality X-Ray Angiograph y Narrative 12/22/2024 1:18 PM CDT Please see OpNote for result. Jacek King MD CV CARDIAC CATH PROCEDURES Final Result * eGFR (12/22/2024 9:35 AM CDT) eGFR 82 >=60 mL/min/1. 73 m2 Comment: Interpretive Data Reference Interval Normal >/= 90 mL/min/1.73m2 Mildly decreased* 60 - 89 mL/min/1.73m2 Mildly to moderately decreased 45 - 59 mL/min/1.73m2 Moderately to severely decreased 30 - 44 mL/min/1.73m2 Severely decreased 15 - 29 mL/min/1.73m2 Kidney Failure < 15 mL/min/1.73m2 *Relative to young adult level Estimated glomerular filtration rate is determined by the 2020 CKD-EPI equation recommended by the National Kidney Foundation (A Unifying Approach to GFR Estimation: Recommendations of the NKF-ASK Task Force on Reassessing the Inclusion of Race in Diagnosing Kidney Disease, JASN 2020). The CKD-EPI equation should not be used for patients with unstable renal function and has not been validated in children and those over 70. Current interpretive data was last reviewed 2021. Blood 12/22/2024 9:35 AM CDT 12/22/2024 10:12 AM CDT Jacek King MD LAB BLOOD ORDERABLES Final Resul t [facility] [address] [facility] Department [place] [address] * (ABNORMAL) Differential, auto (12/22/2024 9:35 AM CDT) Neutrophil abs 7.91(H) 1.50 - 6.50 K/cumm Imm gran abs 0.03 0.00 - 0.10 K/cumm [facility] Lymphocyte abs 1.95 0.80 - 3.30 K/cumm [facility] Monocyte abs 0.64 0.20 - 0.80 K/cumm [facility] Eosinophil abs 0.02 0.00 - 0.50 K/cumm [facility] Basophil abs 0.06 0.00 - 0.10 K/cumm [facility] Neutrophil pct 74.5 % [facility] Comment: Interpretive Data Percent cell count reference ranges are not reported, since discordance with absolute values may lead to misinterpretation of CBC data. Current Interpretive Data was last revised on 2017. Imm gran pct 0.3 % [facility] Comment: Interpretive Data Percent cell count reference ranges are not reported, since discordance with absolute values may lead to misinterpretation of CBC data. Current Interpretive Data was last revised on 2017. Lymphocyte pct 18.4 % [facility] Comment: Interpretive Data Percent cell count reference ranges are not reported, since discordance with absolute values may lead to misinterpretation of CBC data. Current Interpretive Data was last revised on 2017. Monocyte pct 6.0 % [facility] Comment: Interpretive Data Percent cell count reference ranges are not reported, since discordance with absolute values may lead to misinterpretation of CBC data. Current Interpretive Data was last revised on 2017. Eosinophil pct 0.2 % [facility] Comment: Interpretive Data Percent cell count reference ranges are not reported, since discordance with absolute values may lead to misinterpretation of CBC data. Current Interpretive Data was last revised on 2017. Basophil pct 0.6 % [facility] Comment: Interpretive Data Percent cell count reference ranges are not reported, since discordance with absolute values may lead to misinterpretation of CBC data. Current Interpretive Data was last revised on 2017. Blood 12/22/2024 9:35 AM CDT 12/22/2024 10:12 AM CDT Jacek King MD LAB BLOOD ORDERABLES Final Resul t Performing Organization Address [facility] de Phone Number [facility] [address] [place] [address] * (ABNORMAL) CBC with auto differential (12/22/2024 9:35 AM CDT) WBC 10.61(H) 3.80 - 9.90 K/cumm Hgb 15.9 13.0 - 17.5 g/dL [facility] Hct 47.5 38.9 - 50.3 % [facility] Plt 226 150 - 400 K/cumm [facility] MPV 11.9 9.1 - 12.3 fL [facility] RBC 5.06 4.30 - 5.80 M/cumm [facility] MCV 93.9 81.3 - 96.4 fL [facility] MCH 31.4 27.1 - 33.3 pg [facility] MCHC 33.5 32.3 - 35.7 g/dL [facility] RDW CV 12.8 11.1 - 14.9 % [facility] RDW SD 44.3 35.7 - 48.1 fL [facility] NRBC abs 0.00 0.00 - 0.01 K/cumm [facility] Blood 12/22/2024 9:35 AM CDT 12/22/2024 10:12 AM CDT Narrative [facility] - 12/22/2024 10:16 AM CDT If most recent labs were drawn prior to 4 AM, draw only prior to initiating procedure. Jacek King MD LAB BLOOD ORDERABLES Final Resul t Performing Organization Address [facility] Co de Phone Number [facility] [address] [place] [address] * ABO/Rh (12/22/2024 9:35 AM CDT) Pathologist [facility] ABO/Rh B Positive Blood 12/22/2024 9:35 AM CDT 12/22/2024 10:12 AM CDT Narrative [facility] - 12/22/2024 10:52 AM CDT Has the patient had Daratumumab or Isatuximab in the past 6 months?->Unknown Result [facility] Jacek King MD LAB BLOOD BANK TEST ORDERABLES F inal Result Performing Organization Address [facility] Co de Phone Number [address] [place] [address] * aPTT (12/22/2024 9:35 AM CDT) aPTT 27 22 - 37 sec Comment: Interpretive data aPTT test has not been evaluated for monitoring heparin therapy. The anti-Xa is the preferred test. Current interpretive data was last revised on 2019. Blood 12/22/2024 9:35 AM CDT 12/22/2024 10:12 AM CDT Jacek King MD LAB BLOOD ORDERABLES Final Resul t Performing Organization Address [facility] de Phone Number [address] [address] * Protime-INR (12/22/2024 9:35 AM CDT) PT 13.20 12.00 - 14.60 sec INR 0.99 0.90 - 1.20 [facility] Comment: Interpretive data Oral anticoagulant therapeutic ranges: Venous thromboembolism prophylaxis or treatment: 2.0-3.0 CARDIOLOGY Standard range: 2.0-3.0 High-intensity range: 2.5-3.5 Refer to indication-specific guidelines for appropriate target ranges for prosthetic heart valve replacement. Current interpretive data was last revised on 2019. Blood 12/22/2024 9:35 AM CDT 12/22/2024 10:12 AM CDT Jacek King MD LAB BLOOD ORDERABLES Final Resul t Performing Organization Address [facility] Co de Phone Number [address] [address] * Antibody screen (12/22/2024 9:35 AM CDT) [facility] Alida, indirect, Gel Interpretation Negative ABSC Blood 12/22/2024 9:35 AM CDT 12/22/2024 10:12 AM CDT Narrative [facility] - 12/22/2024 10:52 AM CDT Has the patient had Daratumumab or Isatuximab in the past 6 months?->Unknown Jacek King MD LAB BLOOD BANK TEST ORDERABLES F inal Result Performing Organization Address [facility] Co de Phone Number [address] [address] * Basic metabolic panel (12/22/2024 9:35 AM CDT) [facility] Sodium 138 135 - 145 mmol/L Potassium, pl 4.7 3.3 - 4.9 mmol/L [facility] Comment:Hemolyzed; Potassium value may be falsely elevated by as much as 1.0 mmol/L. Suggest redraw and reanalysis. Chloride 102 97 - 110 mmol/L [facility] CO2 25 22 - 32 mmol/L [facility] Anion gap 11 2 - 15 mmol/L [facility] BUN 17 6 - 25 mg/dL [facility] Creatinine 0.96 0.80 - 1.30 mg/dL [facility] Glucose 86 70 - 199 mg/dL [facility] Comment: Interpretive Data Fasting glucose >/= 126 mg/dl is diagnostic for diabetes. Fasting is defined as no caloric intake for at least 8 hours. Fasting glucose between 100 mg/dl to 125 mg/dl is diagnostic of prediabetes. In a patient with classic symptoms of hyperglycemia or hyperglycemic crisis, a random glucose >/= 200 mg/dl is diagnostic for diabetes. In the absence of unequivocal hyperglycemia, results should be confirmed by repeat testing. The classification and Diagnosis of Diabetes Diabetes Care 2021; 46: S19-S40. Current interpretive data was last revised 2022. Calcium 9.9 8.5 - 10.3 mg/dL [facility] Blood 12/22/2024 9:35 AM CDT 12/22/2024 10:12 AM CDT Jacek King MD LAB BLOOD ORDERABLES Final Resul t [facility] [address] [facility] Department [place] [address] * US Arterial Duplex Lower Extremity Left Limited (11/07/2024 10:30 AM CDT) Anatomical Region Laterality Modality Vascular Left Ultrasound 11/07/2024 9:11 AM CDT Narrative 11/08/2024 10:21 AM CDT Vascular & Vein Surgery [address] [place] [address] Lower Extremity Arterial Duplex Report Patient Name: SHAMAR RAMIREZ C : 1950 (73y 10m) Gender: M Study Date: 11/07/2024 09:11:39 AM Ht(Inch): Wt(Lb): BSA: [employer] Operator: CARMELO Location: [facility] Order Provider: JACEK KING Quality: Adequate Ref Provider: JACEK KNIG PROCEDURES: Arterial Report: A non-invasive vascular imaging study of the left lower extremity arteries and stent was performed using B-mode ultrasound, color flow, and spectral Doppler. INDICATIONS: S/P stent LCIA & Lt SFA, aneurysm repair LCIA 04/13/24. HISTORY: HTN. HLD. Current smoker. COMPARISONS: The previous exam was completed on 05/29/24: Lt SFA stent with mildly elevated velocities in the proximal portion. Compared to prior there is new elevated velocity at distal portion of stent. MEASUREMENTS: Left Value Lt DIAMOND EXPERT Dst PSV 288.00 cm/sec Lt Profunda Prx PSV 131.00 cm/sec Lt SFA Prx PSV 120.00 cm/sec Lt SFA Dst PSV 31.00 cm/sec Lt Pop Prx PSV 33.00 cm/sec Lt Pop Dst PSV 39.00 cm/sec Lt Ant Tibial Prx PSV 31.00 cm/sec Lt Post Tibial Prx PSV 40.00 cm/sec Lt Post Tibial Mid PSV 32.00 cm/sec Lt Peroneal Prx PSV 17.00 cm/sec Lt Peroneal Mid PSV 16.00 cm/sec STENTS: Left Value Location Lt SFA Lt Stent Prx [place] PSV 81.00 cm/sec Lt Stent Prx PSV 94.00 cm/sec Lt Stent Mid PSV 94.00 cm/sec Lt Stent Dst PSV 551.00 cm/sec Lt Stent Dst [place] PSV 45.00 cm/sec FINDINGS: Left: Triphasic arteries include the left profunda femoral artery. Biphasic arteries include the left common femoral artery and proximal superficial femoral artery. Monophasic arteries include the left distal superficial femoral artery, popliteal artery, anterior tibial artery, posterior tibial artery and peroneal artery. Increased velocities noted of the left common femoral artery. Stent 1: The stent is located in the left superficial femoral artery. Increased velocities at the distal portion of the stent with PSV 551 cm/s, ratio 15.3. CONCLUSION: 1. There is moderate 50-75% stenosis in the left common femoral artery. 2. Stent in the left superficial femoral artery is patent elevated velocities at the distal portion of the stent consistent with InStent stenosis. ATTESTATION: I have reviewed and interpreted the pertinent images and measurements of this study. I attest to the conclusions in the final report that is provided above. Electronically Signed By: Jacek King MD 11/08/2024 9:32:52 AM CDT Procedure Note Jacek King MD - 11/08/2024 Vascular & Vein Surgery [address] [place] [address] Lower Extremity Arterial Duplex Report Patient Name: SHAMAR RAMIREZ C : 1950 (73y 10m) Gender: M Study Date: 11/07/2024 09:11:39 AM Ht(Inch): Wt(Lb): BSA: [employer] Operator: Location: [facility] Order Provider: JACEK KING Quality: Adequate Ref Provider: JACEK KING PROCEDURES: Arterial Report: A non-invasive vascular imaging study of the left lowerextremity arteries and stent was performed using B-mode ultrasound, color flow, andspectral Doppler. INDICATIONS: S/P stent LCIA & Lt SFA, aneurysm repair LCIA 04/13/24. HISTORY: HTN. HLD. Current smoker. COMPARISONS: The previous exam was completed on 05/29/24: Lt SFA stent with mildlyelevated velocities in the proximal portion. Compared to prior there is new elevated velocityat distal portion of stent. MEASUREMENTS: Left Value Lt DIAMOND EXPERT Dst PSV 288.00 cm/sec Lt Profunda Prx PSV 131.00 cm/sec Lt SFA Prx PSV 120.00 cm/sec Lt SFA Dst PSV 31.00 cm/sec Lt Pop Prx PSV 33.00 cm/sec Lt Pop Dst PSV 39.00 cm/sec Lt Ant Tibial Prx PSV 31.00 cm/sec Lt Post Tibial Prx PSV 40.00 cm/sec Lt Post Tibial Mid PSV 32.00 cm/sec Lt Peroneal Prx PSV 17.00 cm/sec Lt Peroneal Mid PSV 16.00 cm/sec STENTS: Left Value Location Lt SFA Lt Stent Prx [place] PSV 81.00 cm/sec Lt Stent Prx PSV 94.00 cm/sec Lt Stent Mid PSV 94.00 cm/sec Lt Stent Dst PSV 551.00 cm/sec Lt Stent Dst [place] PSV 45.00 cm/sec FINDINGS: Left: Triphasic arteries include the left profunda femoral artery.Biphasic arteries include the left common femoral artery and proximal superficial femoralartery. Monophasic arteries include the left distal superficial femoral artery,popliteal artery, anterior tibial artery, posterior tibial artery and peroneal artery.Increased velocities noted of the left common femoral artery. Stent 1: The stent is located in the left superficial femoral artery.Increased velocities at the distal portion of the stent with PSV 551 cm/s, ratio15.3. CONCLUSION: 1. There is moderate 50-75% stenosis in the left common femoral artery. 2. Stent in the left superficial femoral artery is patent elevatedvelocities at the distal portion of the stent consistent with InStent stenosis. ATTESTATION: I have reviewed and interpreted the pertinent images and measurements ofthis study. I attest to the conclusions in the final report that is provided above. Electronically Signed By: Jacek King MD 11/08/2024 9:32:52 AM CDT us Jacek King MD IMG US PROCEDURES Final Result * US Duplex Scan Aorta, IVC Iliac Complete (11/07/2024 10:30 AM CDT) Anatomical Region Laterality Modality Vascular N/A Ultrasound 11/07/2024 8:46 AM CDT Narrative 11/08/2024 10:21 AM CDT V[facility] Ve[facility] [address] [place] [address] Abdominal Aortic Duplex Ultrasound Report Patient Name: SHAMAR RAMIREZ C : 1950 Study Date: 11/07/2024 8:46:09 AM Gender: M Gamewell Operator: CARMELO Location: [facility] Ref Provider: JACEK KING Quality: Adequate Order Provider: JACEK KING PROCEDURES: Arterial Report: Duplex ultrasound imaging of the abdominal aorta. INDICATIONS: S/P stent LCIA & Lt SFA, aneurysm repair LCIA 04/13/24. COMPARISONS: No change compared to prior study. The previous exam was completed on 05/29/24: 50-75% stenosis RCIA, REIA, SARAH, patent LCIA stent, ectatic AO 2.22 x 2.24 cm. STENTS: Velocities Value Aorta Prx PSV 55.00 cm/sec Aorta Mid PSV 56.00 cm/sec Aorta Dst PSV 50.00 cm/sec Rt Com Iliac Prx PSV 127.00 cm/sec Rt Com Iliac Dst PSV 317.00 cm/sec Rt Ext Iliac Prx PSV 164.00 cm/sec Rt Ext Iliac Mid PSV 230.00 cm/sec Rt Ext Iliac Dst PSV 213.00 cm/sec Lt Ext Iliac Prx PSV 231.00 cm/sec Lt Ext Iliac Mid PSV 262.00 cm/sec Lt Ext Iliac Dst PSV 260.00 cm/sec BYPASS: Velocities Value Aorta Prx AP Dim 2.83 cm Aorta Prx Trans Dim 2.55 cm Aorta Mid AP Dim 2.21 cm Aorta Mid Trans Dim 2.11 cm Aorta Dst AP Dim 2.27 cm Aorta Dst Trans Dim 2.44 cm Rt Com Iliac Prx AP Dim 0.84 cm Rt Com Iliac Prx Trans Dim 0.88 cm Lt Com Iliac Prx AP Dim 0.73 cm Lt Com Iliac Prx Trans Dim 0.72 cm MEASUREMENTS: Stent Measurements Measurement Value Units Location LCIA Stent Prx PSV 96.00 cm/sec Stent Mid PSV 104.00 cm/sec Stent Dst PSV 90.00 cm/sec Stent [place] Outflow PSV 93.00 cm/sec FINDINGS: Study Quality: Adequate. Abdominal Aorta: Normal diameter, ectatic. Atherosclerotic plaque noted. Patent left common iliac artery stent. Elevated PSV 317 cm/s noted at right common iliac artery, 230 cm/s noted at right external iliac artery and 262 cm/s noted at left external iliac artery. CONCLUSIONS: 1. Findings suggest 50-75% stenosis of the Right Common Iliac Artery. 2. Findings suggest 50-75% stenosis of the Right External Iliac Artery. 3. Patent left common iliac artery stent no evidence of stenosis. ATTESTATION: I have reviewed and interpreted the pertinent images and measurements of this study. I attest to the conclusions in the final report that is provided above. Electronically Signed By: Jacek King MD 11/08/2024 9:31:58 AM CDT Procedure Note Jacek King MD - 11/08/2024 [facility] [address] [place] [address]. [place] [address] Abdominal Aortic Duplex Ultrasound Report Patient Name: SHAMAR RAMIREZ C : 1950 Study Date: 11/07/2024 8:46:09 AM Gender: M Gamewell Operator: CARMELO Location: [facility] Ref Provider: JACEK KING Quality: Adequate Order Provider: JACEK KING PROCEDURES: Arterial Report: Duplex ultrasound imaging of the abdominal aorta. INDICATIONS: S/P stent LCIA & Lt SFA, aneurysm repair LCIA 04/13/24. COMPARISONS: No change compared to prior study. The previous exam was completed on 05/29/24: 50-75% stenosis RCIA, REIA,SARAH, patent LCIA stent, ectatic AO 2.22 x 2.24 cm. STENTS: Velocities Value Aorta Prx PSV 55.00 cm/sec Aorta Mid PSV 56.00 cm/sec Aorta Dst PSV 50.00 cm/sec Rt Com Iliac Prx PSV 127.00 cm/sec Rt Com Iliac Dst PSV 317.00 cm/sec Rt Ext Iliac Prx PSV 164.00 cm/sec Rt Ext Iliac Mid PSV 230.00 cm/sec Rt Ext Iliac Dst PSV 213.00 cm/sec Lt Ext Iliac Prx PSV 231.00 cm/sec Lt Ext Iliac Mid PSV 262.00 cm/sec Lt Ext Iliac Dst PSV 260.00 cm/sec BYPASS: Velocities Value Aorta Prx AP Dim 2.83 cm Aorta Prx Trans Dim 2.55 cm Aorta Mid AP Dim 2.21 cm Aorta Mid Trans Dim 2.11 cm Aorta Dst AP Dim 2.27 cm Aorta Dst Trans Dim 2.44 cm Rt Com Iliac Prx AP Dim 0.84 cm Rt Com Iliac Prx Trans Dim 0.88 cm Lt Com Iliac Prx AP Dim 0.73 cm Lt Com Iliac Prx Trans Dim 0.72 cm MEASUREMENTS: Stent Measurements Measurement Value Units Location LCIA Stent Prx PSV 96.00 cm/sec Stent Mid PSV 104.00 cm/sec Stent Dst PSV 90.00 cm/sec Stent [place] Outflow PSV 93.00 cm/sec FINDINGS: Study Quality: Adequate. Abdominal Aorta: Normal diameter, ectatic. Atherosclerotic plaque noted. Patent left commoniliac artery stent. Elevated PSV 317 cm/s noted at right common iliac artery, 230 cm/snoted at right external iliac artery and 262 cm/s noted at left external iliac artery. CONCLUSIONS: 1. Findings suggest 50-75% stenosis of the Right Common Iliac Artery. 2. Findings suggest 50-75% stenosis of the Right External Iliac Artery. 3. Patent left common iliac artery stent no evidence of stenosis. ATTESTATION: I have reviewed and interpreted the pertinent images and measurements ofthis study. I attest to the conclusions in the final report that is provided above. Electronically Signed By: Jacek King MD 11/08/2024 9:31:58 AM CDT us Jacek King MD IMG US PROCEDURES Final Result * US KYLAH (11/07/2024 10:30 AM CDT) Anatomical Region Laterality Modality Vascular N/A Ultrasound 11/07/2024 8:41 AM CDT Narrative 11/08/2024 10:21 AM CDT V[facility] Ve[facility] [address] [place] [address]. [place] [address] Lower Extremity Arterial Doppler Report Patient Name: SHAMAR RAMIREZ C : 1950 Study Date: 11/07/2024 8:41:00 AM Gender: M Gamewell Operator: Shannan Redman RVT Location: [facility] Ref Provider: JACEK KING Quality: Adequate Order Provider: JACEK KING PROCEDURES: Arterial Report: Ankle - Brachial Index Doppler exam. INDICATIONS: S/P stent LCIA & Lt SFA, aneurysm repair LCIA 04/13/24. HISTORY: HTN. HLD. Current smoker. COMPARISONS: The previous exam was completed on 05/29/24: Rt 0.94, Lt 1.06. Compared to prior there is disease progression on the left, no significant change on the right. MEASUREMENTS: Right Value Left Value Rt Brachial Pressure 163 mmHg Lt Brachial Pressure 159 mmHg Rt SHOW OPERATIONS SUPERVISOR Pressure 169 mmHg Lt SHOW OPERATIONS SUPERVISOR Pressure 132 mmHg Rt DPA Pressure 153 mmHg Lt DPA Pressure 120 mmHg Rt PT KYLAH Resting 1.04 Lt PT KYLAH Resting 0.81 Rt DP KYLAH Resting 0.94 Lt DP KYLAH Resting 0.74 FINDINGS: Right Posterior Tibial Artery Analysis: The posterior tibial waveform is triphasic. Right Anterior Tibial Artery Analysis: The anterior tibial waveform is triphasic. Left Posterior Tibial Artery Analysis: The posterior tibial waveform is monophasic. Left Anterior Tibial Artery Analysis: The anterior tibial waveform is monophasic. CONCLUSIONS: 1. Ankle-brachial index of 0.9-1.3 is within normal limits in the right lower extremity. 2. 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 ATTESTATION: I have reviewed and interpreted the pertinent images and measurements of this study. I attest to the conclusions in the final report that is provided above. Electronically Signed By: Jacek King MD 11/08/2024 9:29:53 AM CDT Procedure Note Jacek King MD - 11/08/2024 [facility] [address] [place] [address]. [place] [address] Lower Extremity Arterial Doppler Report Patient Name: SHAMAR RAMIREZ C : 1950 Study Date: 11/07/2024 8:41:00 AM Gender: M Gamewell Operator: Shannan Redman RVT Location: [facility] Ref Provider: JACEK KING Quality: Adequate Order Provider: JACEK KING PROCEDURES: Arterial Report: Ankle - Brachial Index Doppler exam. INDICATIONS: S/P stent LCIA & Lt SFA, aneurysm repair LCIA 04/13/24. HISTORY: HTN. HLD. Current smoker. COMPARISONS: The previous exam was completed on 05/29/24: Rt 0.94, Lt 1.06. Compared to prior there is disease progression on the left, no significantchange on the right. MEASUREMENTS: Right Value Left Value Rt Brachial Pressure 163 mmHg Lt Brachial Pressure 159 mmHg Rt SHOW OPERATIONS SUPERVISOR Pressure 169 mmHg Lt SHOW OPERATIONS SUPERVISOR Pressure 132 mmHg Rt DPA Pressure 153 mmHg Lt DPA Pressure 120 mmHg Rt PT KYLAH Resting 1.04 Lt PT KYLA[place] Resting 0.81 Rt DP KYLAH Resting 0.94 Lt DP KYLAH Resting 0.74 FINDINGS: Right Posterior Tibial Artery Analysis: The posterior tibial waveform is triphasic. Right Anterior Tibial Artery Analysis: The anterior tibial waveform is triphasic. Left Posterior Tibial Artery Analysis: The posterior tibial waveform is monophasic. Left Anterior Tibial Artery Analysis: The anterior tibial waveform is monophasic. CONCLUSIONS: 1. Ankle-brachial index of 0.9-1.3 is within normal limits in the rightlower extremity. 2. Ankle-brachial index of 0.8-0.9 is consistent with mild occlusivearterial disease in the left lower extremity. ATTESTATION: I have reviewed and interpreted the pertinent images and measurements ofthis study. I attest to the conclusions in the final report that is provided above. Electronically Signed By: Jacek King MD 11/08/2024 9:29:53 AM CDT Jacek King MD [facility] PROCEDURES Final Result from Last 3 Months Insurance [employer] MEDICARE ADVANTAGE [facility] Address: [place] [id number] [place] [id number] [facility] Address: [facility] [address] [place] [address] [facility] MEDICARE ADVANTAGE Advance Directives For more information, please contact: [phone] * Full Code (Latest Code Status on File) Date Activated Date Inactivated Comments 12/22/2024 6:34 PM 12/22/2024 10:40 PM * Full Code Date Activated Date Inactivated Comments 04/13/2024 2:24 PM 04/13/2024 6:30 PM Care Teams Sas Bi Developer Relationship Specialty Start Date End Date Pritesh Quispe DO PCP - General Internal Medicine 10/25/22
--- OUTSIDE RECORDS SUMMARY | 2024-12-24 06:57 | XMS_ITS | Clinical Summary ---
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
--- OUTSIDE RECORDS SUMMARY | 2024-12-24 06:57 | XMS_ITS | Clinical Summary ---
Author Organization [facility] Address [facility] [place] [address] Care Team Providers Care Tool Filer Name Role Phone Teddy King MD Unavailable Pritesh Quispe DO Primary Care Provider [phone] Allergies No known active allergies Medications clopidogrel (PLAVIX) 75 MG tablet Take 1 tablet (75 mg total) by mouth nightly. Active aspirin 81 MG chewable tablet Chew 1 tablet (81 mg total) by mouth nightly. Active lisinopril (PRINIVIL) 5 MG tablet Take 1 tablet (5 mg total) by mouth nightly. Active atorvastatin (LIPITOR) 10 MG tablet Take 1 tablet (10 mg total) by mouth nightly at bedtime. Active Active Problems No known active problems Encounters Date Type Department Care Team Description 11/30/2024 10:55 AM CDT [place]esthesia [place] [address] Carlos Jamil MD Jackson, Samantha Rae, FNP 11/30/2024 9:39 AM CDT - 11/30/2024 12:30 PM CDT Hospital Encounter [facility] [address] Michael Rollins MD Discharge Disposition: Home or Self Care (Routine Discharge) 11/30/2024 9:36 AM CDT - 11/30/2024 10:29 AM CDT [place] [address] Michael Rollins MD TRANSRECTAL ULTRASOUND GUIDED FUSION PROSTATE BIOPSY 11/30/2024 Travel 11/23/2024 Travel from Last 3 Months Social History Tobacco Use Types Packs/Day Years Used Date Smoking Tobacco: Every Day Cigarettes Smokeless Tobacco: Never Tobacco Cessation:Ready to Q uit: Not Asked; Counseling Given: Not Answered Comments:10 cigarettes a day, no longer vapes Alcohol Use Standard Drinks/Week Comments Yes 0 (1 standard drink = 0.6 oz pur e alcohol) seldom Sex and Gender Information Value Date Recorded Sex Assigned at Male 11/30/2024 9:34 AM CDT 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 Gender Identity Not on file Sexual Orientation Not on file Last Filed Vital Signs Vital Sign Reading Time Taken Comments Blood Pressure 162/68 11/30/2024 12:25 PM CDT Pulse 68 11/30/2024 12:25 PM CDT Temperature 36.2 C (97.2 F) 11/30/2024 12:25 PM CDT Respiratory Rate 16 11/30/2024 12:25 PM CDT Oxygen Saturation 99% 11/30/2024 12:25 PM CDT Inhaled Oxygen Concentration - - Weight 62.7 kg (138 lb 3.7 oz) 11/30/2024 10:10 AM CDT Height 175.3 cm (5' 9) 11/23/2024 8:53 AM CDT Body Mass Index 20.41 11/23/2024 8:53 AM CDT Plan of Treatment Health Maintenance Due Date Last Done Comments Colorectal Cancer Screening Colonoscopy (10 Years) 1950 Hepatitis C 12/19/1967 DTaP, Tdap and Td Vaccines (1 - Tdap) 1968 Pneumococcal Vaccine: 50+ Years (1 of 2 - PCV) 1968 Zoster Vaccines (1 of 2) 12/19/1999 AAA SCREENING 2014 Annual Medicare Wellness Visit 2014 COVID-19 Vaccine ( - season) 2023 04/23/2022, 02/08/2021, 07/20/2020, Additional history exists RSV Immunization or 60+ Years (1 - 1-dose 75+ series) 2024 Meningococcal B Vaccine Aged Out No l onger eligible based on patient's age to complete this topic Meningococcal Vaccine Aged Out No charla lisa eligible based on patient's age to complete this topic RSV Immunizations Under 20 Months Aged Out No longer eligible based on patient's age to complete this topic Procedures Procedure Name Priority Date/Time Associated Diagnosis Comments BIOPSY OF PROSTATE,NEEDLE/ PUNCH 11/30/2024 10:55 AM CDT MALIGNANT NEOPLASM OF PROSTATE C61 Case Notes SCHED BY FAX 10/13/2024 [facility] PHONE ASSESS Special Needs [facility] CONFIRMATION # [id number] PATHOLOGY Routine 11/30/2024 12:00 AM CDT from Last 3 Months Results * Pathology (11/30/2024 12:00 AM CDT) PATHOLOGY [facility] Department of Laboratory Medicine [address] [place] [id number] , extension [id number] Pathology Report Surgical Pathology Report Name: LEO RAMIREZ Specimen #: [id number] Age: 8 1950 (Age: 73) Location: [facility] Sex: M Procedure Date: 11/30/2024 Hospital #: [id number] Date Received: 11/30/2024 Date Reported: 12/01/2024 Provider: MICHAEL ROLLINS MD Source: A: Prostate, TELMA #1, needle biopsy B: Prostate, left lateral apex, needle biopsy C: Prostate, left lateral mid, needle biopsy D: Prostate, left lateral base, needle biopsy E: Prostate, left medial apex, needle biopsy F: Prostate, left medial mid, needle biopsy G: Prostate, left medial base, needle biopsy H: Prostate, right lateral apex, needle biopsy I: Prostate, right lateral mid, needle biopsy J: Prostate, right lateral base, needle biopsy K: Prostate, right medial apex, needle biopsy L: Prostate, right medial mid, needle biopsy M: Prostate, TELMA #2, needle biopsy N: Prostate, right medial base, needle biopsy Clinical History: Malignant neoplasm of prostate FINAL DIAGNOSIS: A. Prostate, TELMA #1, needle biopsy: - Acinar adenocarcinoma, grade Group 1 (Coolidge score 3+3 = 6), in 1 of 2 cores, 5% of prostatic tissue. B. Prostate, left lateral apex, needle biopsy: - Acinar adenocarcinoma, grade group 2 (Collin score 3+4 = 7), in 1 of 2 cores, 50% of prostatic tissue. C. Prostate, left lateral mid, needle biopsy: - Benign prostatic tissue. D. Prostate, left lateral base, needle biopsy: - Benign prostatic tissue. E. Prostate, left medial apex, needle biopsy: - Benign prostatic tissue. F. Prostate, left medial mid, needle biopsy - Benign prostatic tissue. G. Prostate, left medial base, needle biopsy - Benign prostatic tissue. H. Prostate, right lateral apex, needle biopsy: - Acinar adenocarcinoma, grade Group 1 (Collin score 3+3 = 6), in 1 of 1 core, 5% of prostatic tissue. I. Prostate, right lateral mid, needle biopsy: - Acinar adenocarcinoma, grade group 2 (Collin score 3+4 = 7), in 1 of 1 core, 40% of prostatic tissue. J. Prostate, right lateral base, needle biopsy: - Acinar adenocarcinoma, grade group 2 (Collin score 3+4 = 7), in 1 of 1 core, 20% of prostatic tissue. - Perineural invasion by adenocarcinoma is identified. K. Prostate, right medial apex, needle biopsy: - Acinar adenocarcinoma, grade group 2 (Coolidge score 3+4 = 7), in 1 of 1 core, 30% of prostatic tissue. L. Prostate, right medial mid, needle biopsy: - Acinar adenocarcinoma, grade group 2 (Collin score 3+4 = 7), in 1 of 1 core, 20% of prostatic tissue. - Perineural invasion by adenocarcinoma is identified. M. Prostate, TELMA #2, needle biopsy: - Acinar adenocarcinoma, grade group 2 (Coolidge score 3+4 = 7), in 2 of 4 cores, 50% of prostatic tissue. N. Prostate, right medial base, needle biopsy: - Benign prostatic tissue. Gross Description: A. Received in formalin, labeled with a patient label and as region of interest #1 are 2 less than 0.1 cm diameter cores of white-cunningham tissue, each 1.3 cm in length. The specimen is entirely submitted in cassette A1. B. Received in formalin, labeled with a patient label and as left lateral apex are 2 less than 0.1 cm diameter cores of white-cunningham tissue, 0.5 and 1.0 cm in length. The specimen is entirely submitted in cassette B1. C. Received in formalin, labeled with a patient label and as left lateral mid is a 1.7 cm long, less than 0.1 cm diameter core of white-cunningham tissue. The specimen is entirely submitted in cassette C1. D. Received in formalin, labeled with a patient label and as left lateral base is a 1.5 cm long, less than 0.1 cm diameter core of white-cunningham tissue. The specimen is entirely submitted in cassette D1. E. Received in formalin, labeled with a patient label and as left medial apex are 2 less than 0.1 cm diameter cores of white-cunningham tissue, 0.5 and 0.7 cm in length. The specimen is entirely submitted in cassette E1. F. Received in formalin, labeled with a patient label and as left medial mid is a 1.6 cm long, less than 0.1 cm diameter core of white-cunningham tissue. The specimen is entirely submitted in cassette F1. G. Received in formalin, labeled with a patient label and as left medial base is a 1.8 cm long, less than 0.1 cm diameter core of white-cunningham tissue. The specimen is entirely submitted in cassette G1. H. Received in formalin, labeled with a patient label and as right lateral apex is a 1.7 cm long, less than 0.1 cm diameter core of white-cunningham tissue. The specimen is entirely submitted in cassette H1. I. Received in formalin, labeled with a patient label and as right lateral mid is a 1.3 cm long, less than 0.1 cm diameter core of white-cunningham tissue. The specimen is entirely submitted in cassette I1. J. Received in formalin, labeled with a patient label and as right lateral base is a 1.4 cm long, less than 0.1 cm diameter core of white-cunningham tissue. The specimen is entirely submitted in cassette J1. K. Received in formalin, labeled with a patient label and as right medial apex is a 1.5 cm long, less than 0.1 cm diameter core of white-cunningham tissue. The specimen is entirely submitted in cassette K1. L. Received in formalin, labeled with a patient label and as right medial mid is a 1.7 cm long, less than 0.1 cm diameter core of white-cunningham tissue. The specimen is entirely submitted in cassette L1. M. Received in formalin, labeled with a patient label and as region of interest #2 are 3 less than 0.1 cm diameter cores of white-cunningham tissue ranging from 0.6 to 1.5 cm in length. The specimen is entirely submitted in cassette M1. N. Received in formalin, labeled with a patient label and as right medial base is a 1.5 cm long, less than 0.1 cm white-cunningham tissue. The specimen is entirely submitted in cassette N1. Gross examination (when applicable), interpretation, and sign out were performed at [facility], [address] [place] [address]. Electronically Signed Out GWENDOLYN SIMPSON MD [facility] TISSUE PROSTATE / Unknown 9:49 AM CDT Tissue specimen (specimen) PROSTATE / Unknown 11/30/2024 9:49 AM CDT Tissue specimen (specimen) PROSTATE / Unknown 11/30/2024 9:49 AM CDT Tissue specimen (specimen) PROSTATE / Unknown 11/30/2024 9:49 AM CDT Tissue specimen (specimen) PROSTATE / Unknown 11/30/2024 9:49 AM CDT Tissue specimen (specimen) PROSTATE / Unknown 11/30/2024 9:49 AM CDT Tissue specimen (specimen) PROSTATE / Unknown 11/30/2024 9:49 AM CDT Tissue specimen (specimen) PROSTATE / Unknown 11/30/2024 9:49 AM CDT Tissue specimen (specimen) PROSTATE / Unknown 11/30/2024 9:49 AM CDT Tissue specimen (specimen) PROSTATE / Unknown 11/30/2024 9:49 AM CDT Tissue specimen (specimen) PROSTATE / Unknown 11/30/2024 9:49 AM CDT Tissue specimen (specimen) PROSTATE / Unknown 11/30/2024 9:49 AM CDT Tissue specimen (specimen) PROSTATE / Unknown 11/30/2024 9:49 AM CDT Tissue specimen (specimen) PROSTATE / Unknown 11/30/2024 9:49 AM CDT us Michael Rollins MD PATHOLOGY/CYTOLOGY ORDERABLES F inal Result [facility] [address] [place] [address], [id number] from Last 3 Months Insurance [facility] Care Teams Tool Filer Relationship Specialty Start Date End Date Pritesh Quispe DO [facility] [address] [place] [address] PCP - General INTERNAL MEDICINE 11/30/24 Teddy King MD [address] [place] [address] [address] [place] [address] VASCULAR SURGERY 04/24/24
--- NOTE | 2024-12-24 07:28 | ED_ITS ---
HPI - General Adult General Chief complaint: Unspecified Stated complaint: hematoma turning blue Time Seen by Provider: 12/24/24 07:04 History of Present Illness HPI narrative: 74-year-old male presents to the emergency department for evaluation for worsening ecchymosis at the right groin. Patient did have angioplasty yesterday done at [facility]. Patient states he was having some significant groin swelling yesterday but it has since gone down. Patient was concerned because there has been significant color change and worsening bruising of the region. Patient denies any current pain and does report swelling has improved. Patient denies any other complaints, denies any chest pain shortness of breath nausea vomiting diarrhea. Related Data Home Medications ?Medication ?Instructions ?Recorded ?Confirmed ?Last Taken ?Type aspirin 81 mg tablet,delayed 81 mg PO DAILY 02/11/24 1 Unknown History release Allergies Allergy/AdvReac Type Severity Reaction Status Date / Time No Known Allergies Allergy Verified 12/24/24 07:28 Review of Systems 2 Review of Systems: All systems reviewed & are unremarkable except as noted in HPI and below PMFSH Past Medical History Medical History Arterial occlusive disease Hyperlipidemia Social History Social History Smoking packs per day: 0.5 Smoking cigarettes per day: 10.0 Years smoked: 55 Smoking pack-years: 27.50 Smoking status: Current every day smoker Tobacco type: cigarettes Alcohol intake: current Substance use type: does not use Lack of Transportation: No Lack of Food: Never True Current Housing: I Have Housing Concerned About Future Housing: No Difficulty Paying Gas/Electric Bills: No Difficulty Paying for Meds: No Currently Unemployed: No Education: Master's Degree or Higher Difficulty w/ Childcare or Family Care: No Living arrangements: alone Spiritual care concerns: No Exam 2 Narrative: APPEARANCE: Well appearing, no pain, no distress, well-nourished. HEAD: normocephalic, atraumatic. EYES: PERRLA/EOMI, conjunctivae clear. NOSE: Normal no drainage EARS:TMS clear with good light reflex. THROAT: Pharynx clear, no exudate. NECK: Supple. No adenopathy, no masses. RESPIRATORY: Airway patent, respirations nonlabored. Clear to auscultation bilaterally, no rales, rhonchi, wheezing. CARDIOVASCULAR: Regular rate and rhythm without murmurs rubs or gallops. ABDOMINAL: Soft, nontender, nondistended, normal bowel sounds MUSCULOSKELETAL: Some swelling of the right groin with surrounding ecchymosis, femoral pulse intact NEURO: Alert. Cranial nerves II through XII intact. Good gait. Good coordination SKIN: Warm, dry. Normal Color Course Vital Signs Vital signs: Vital Signs Temperature 97.7 F 12/24/24 06:57 Pulse Rate 90 12/24/24 06:57 Respiratory Rate 18 12/24/24 06:57 Blood Pressure 132/72 12/24/24 06:57 Pulse Oximetry 99 12/24/24 06:57 Oxygen Delivery Room Air 12/24/24 06:57 Temperature 97.5 F L 12/24/24 12:27 Pulse Rate 88 12/24/24 12:27 Respiratory Rate 17 12/24/24 12:27 Blood Pressure 144/79 H 12/24/24 12:27 Pulse Oximetry 100 12/24/24 12:27 Oxygen Delivery Room Air 12/24/24 07:26 Medical Decision Making MDM Narrative Medical decision making narrative: 74-year-old male presents to the emergency department for evaluation for possible hematoma in his right groin after Angiocath. Patient currently is afebrile with no leukocytosis hemoglobin of 15.8. No acute abnormalities on the CMP ultrasound does show a hematoma but no evidence of pseudoaneurysm. Patient states that the swelling has gone down so I am not concerned for a worsening hematoma. Differential Diagnosis Differential Diagnosis: Hematoma, pseudoaneurysm, vascular leak, bruising Vital Signs Vital Signs: Vital Signs Temperature 97.7 F 12/24/24 06:57 Pulse Rate 90 12/24/24 06:57 Respiratory Rate 18 12/24/24 06:57 Blood Pressure 132/72 12/24/24 06:57 Pulse Oximetry 99 12/24/24 06:57 Oxygen Delivery Room Air 12/24/24 06:57 Temperature 97.5 F L 12/24/24 12:27 Pulse Rate 88 12/24/24 12:27 Respiratory Rate 17 12/24/24 12:27 Blood Pressure 144/79 H 12/24/24 12:27 Pulse Oximetry 100 12/24/24 12:27 Oxygen Delivery Room Air 12/24/24 07:26 Lab Data Lab results reviewed: Yes I reviewed the patient's lab results. 12/24/24 07:36 12/24/24 07:36 Labs: Lab Results 12/24/24 Range/Units 07:36 WBC 9.7 (4.5-10.0) K/mm3 RBC 5.15 (4.6-6.20) M/mm3 Hgb 15.8 (14.0-18.0) g/dL Hct 48.8 (42.0-52.0) % MCV 94.8 (80-100) fl MCH 30.7 (26-34) pg MCHC 32.4 (32-36) g/dl RDW 12.9 (11.5-14.5) % Plt Count 235 (150-375) k/mm3 MPV 11.0 H (7.4-10.4) fl Immature Gran % (Auto) 0.3 (0-0.5) % Neut % (Auto) 71.0 (45.5-73.1) % Lymph % (Auto) 21.5 (18.3-44.2) % [place] % (Auto) 6.3 (2.6-8.5) % Eos % (Auto) 0.4 (0-4.4) % Baso % (Auto) 0.5 (0.2-1.2) % Lymph # (Auto) 2.09 (0.9-3.2) K/mm3 [place] # (Auto) 0.6 (0.1-0.6) K/mm3 Eos # (Auto) 0.0 (0-0.3) K/mm3 Baso # (Auto) 0.1 (0.0-0.1) K/mm3 Abs Immat Gran (auto) 0.03 (0.00-0.031) K/mm3 Absolute Neuts (auto) 6.9 H (1.3-6.7) K/mm3 Absolute Nucleated RBC 0.000 (0.0-0.012) K/mm3 Nucleated RBC % 0.0 (0.0-0.2) % PT 13.7 (11.1-14.7) Seconds INR 1.0 APTT 26.1 (22.3-36.8) Seconds Sodium 135 L (137-145) mmol/L Potassium 4.5 (3.4-5.0) mmol/L Chloride 101 (98-107) mmol/L Carbon Dioxide 30 (22-30) mmol/L Anion Gap 4 (4-12) mmol/L BUN 22 H (9-20) mg/dL Creatinine 1.01 (0.7-1.3) mg/dL Estim Creat Clear Calc 48 ml/min Estimated GFR > 60 (59 - ) Glucose 104 (65-110) mg/dL Calcium 9.4 (8.4-10.2) mg/dL Total Bilirubin 0.8 (0.2-1.3) mg/dL AST 35 (17-59) U/L ALT 35 (6-50) U/L Alkaline Phosphatase 80 (38-126) U/L Total Protein 7.2 (6.3-8.2) g/dL Albumin 4.2 (3.5-5.1) g/dL Imaging Data Radiologist's impression: Impressions Duplex Scan Lower Extremity Artery 12/24/24 11:38 IMPRESSION: 1. Likely small hematoma at the right groin with no pseudoaneurysm. Discharge Plan Discharge Clinical Impression: Hematoma of right inguinal region Patient Disposition: Home Condition: Stable Instructions: Antibiotic Form, Coronary Angioplasty (DC) Additional Instructions: Continue to have close follow-up with your physicians. If you have any worsening symptoms please call or return to the emergency department. Patient Language: Martiniquais Prescriptions: No Action aspirin 81 mg tablet,delayed release (DR/EC) 81 mg PO DAILY atorvastatin 10 mg tablet 10 mg PO DAILY Qty: 90 0RF Rx Instructions: NEEDS APPOINTMENT FOR FURTHER REFILLS lisinopril 5 mg tablet 5 mg PO DAILY Qty: 90 0RF Rx Instructions: NEEDS APPOINTMENT FOR FURTHER REFILL. varenicline tartrate [Chantix Starting Month Box] 0.5 mg (11)- 1 mg (42) tablets,dose pack See Rx Instructions PO PER PKG DIR Qty: 53 0RF Rx Instructions: PO PER PKG DIR varenicline tartrate [Chantix Continuing Month Box] 1 mg tablet 1 mg PO BID Qty: 56 0RF Follow-up/Referrals: Pritesh Quispe, DO [Primary Care Provider, Internal Medicine]
[2024-12-24 07:43] LABS: Hematocrit 48.8 % (42.0-52.0); Hemoglobin 15.8 g/dL (14.0-18.0); Immature Granulocyte Percent A 0.3 % (0-0.5); Lymphocytes Absolute Auto 2.09 K/mm3 (0.9-3.2); Mean Corpuscular HGB Conc 32.4 g/dl (32-36); Mean Corpuscular Hemoglobin 30.7 pg (26-34); Mean Corpuscular Volume 94.8 fl (80-100); Nucleated Red Blood Cells Absolute Auto 0.000 K/mm3 (0.0-0.012); Nucleated Red Blood Cells Perc 0.0 % (0.0-0.2); Platelet Count Result 235 k/mm3 (150-375); Red Blood Count 5.15 M/mm3 (4.6-6.20); White Blood Count 9.7 K/mm3 (4.5-10.0)
[2024-12-24 07:53] LABS: Alanine Aminotransferase 35 U/L (6-50); Albumin Level 4.2 g/dL (3.5-5.1); Alkaline Phosphatase 80 U/L (38-126); Anion Gap 4 mmol/L (4-12); Aspartate Amino Transferase 35 U/L (17-59); Bilirubin,Total 0.8 mg/dL (0.2-1.3); Blood Urea Nitrogen 22 mg/dL (9-20); Calcium 9.4 mg/dL (8.4-10.2); Carbon Dioxide 30 mmol/L (22-30); Chloride 101 mmol/L (98-107); Estimated CRCL calculation 48 ml/min; Estimated Glomerular Filt Rate > 60; Glucose 104 mg/dL (65-110); Potassium 4.5 mmol/L (3.4-5.0); Sodium 135 mmol/L (137-145); Total Protein 7.2 g/dL (6.3-8.2)
[2024-12-24 07:54] LABS: INR 1.0; Prothrombin Time 13.7 Seconds (11.1-14.7)
[2024-12-24 07:55] LABS: Partial Thromboplastin Time 26.1 Seconds (22.3-36.8)
== END 2024-12-24 12:28 | disposition home or self-care (01) ==
PROVIDERS: Emergency Provider Emergency Medicine; PCP Internal Medicine
DX: L76.32 Postprocedural hematoma of skin and subcutaneous tissue following other procedure (principal); M79.89 Other specified soft tissue disorders; Y83.8 Other surgical procedures as the cause of abnormal reaction of the patient, or of later complication, without mention of misadventure at the time of the procedure; F17.210 Nicotine dependence, cigarettes, uncomplicated
CPT/HCPCS: 36415; 80053; 85025; 85610; 85730; 93926; 99284

== ENCOUNTER 2025-01-08 07:34 | Outpatient (CLI) | payer MEDICARE, SELFPAY ==
--- NOTE | ~2025-01-08 | PE_ITS ---
EXAMINATION: PET_PETPSMAST_PT DATE: 01/08/2025 10:05 INDICATION: Malignant neoplasm of prostate. TECHNIQUE: 5.037 mCi of Ga-68 gozetotide was administered intravenously. Low dose computed tomography (CT) images were acquired from the base of the brain to the proximal thighs for attenuation correction and anatomic localization. Automated exposure control was employed. Dose-length product (DLP) was 595 mGy- cm. Positron emission tomography (PET) images were acquired in the same distribution. COMPARISON: Chest CT 10/16/2022 FINDINGS: Head/neck: There are no pathologically enlarged lymph nodes. Chest: There is mild emphysema. There is mild scarring at the lung apices. No pleural effusion. The heart size is normal. No pericardial effusion. Abdomen/pelvis/proximal thighs: The liver, gallbladder, spleen, pancreas, adrenal glands, and kidneys are normal. The prostate is mildly enlarged. There is increased activity in the prostate with maximum SUV of 6.7, worst in the right peripheral zone. There is diverticulosis of the colon without evidence of diverticulitis. There are no dilated loops of bowel. The appendix is normal. There is a stent in left common iliac artery. There are no pathologically enlarged lymph nodes. There is no free intraperitoneal fluid. There is a stent in left superficial femoral artery. IMPRESSION: 1. Mildly enlarged prostate with increased activity, consistent with primary malignancy. No evidence of metastatic disease. Reviewed, dictated and finalized at location E. IMPRESSION: 1. Mildly enlarged prostate with increased activity, consistent with primary ma lignancy. No evidence of metastatic disease.
== END 2025-01-08 07:35 | disposition home or self-care (01) ==
PROVIDERS: PCP Internal Medicine; Visit Provider Urology
DX: C61 Malignant neoplasm of prostate (principal); N40.0 Benign prostatic hyperplasia without lower urinary tract symptoms
CPT/HCPCS: 78815; A9596